=== PATIENT | female | born 1935 | race Caucasian/White ===

== ENCOUNTER 2018-02-16 12:32 | Emergency (ER) | payer OTHER ==
--- NOTE | 2018-02-16 14:26 | RAD REPORT ---
EXAM DESCRIPTION: RAD - Hip Right 2 View - 02/16/2018 2:15 pm CLINICAL HISTORY: PAIN Fall COMPARISON: No comparisons FINDINGS: Right total hip arthroplasty noted. No hardware complication is seen. No acute fracture or dislocation seen.
--- NOTE | 2018-02-16 14:28 | RAD REPORT ---
EXAM DESCRIPTION: RAD - Pelvis - 02/16/2018 2:16 pm CLINICAL HISTORY: fall 1 week ago;Pain COMPARISON: Hip Right 2 View dated 02/16/2018; Lumbar Spine 3 Views dated 02/16/2018 FINDINGS: Right total hip arthroplasty is noted. Moderate degenerative changes are present in the le ft hip. Subtle lucency in the right sacral ala could indicate the presence of sacral insufficiency fr acture.
--- NOTE | 2018-02-16 14:29 | RAD REPORT ---
EXAM DESCRIPTION: RAD - Lumbar Spine 3 Views - 02/16/2018 2:15 pm CLINICAL HISTORY: fall 1 week ago;Pain Radiculopathy COMPARISON: No comparisons FINDINGS: [id number] degenerative levoscoliosis of the lumbar spine is seen. Multilevel disc t hinning with posterior osteophyte is present with mild degenerative anterolisthesis of L4 on 5. Promi nent degenerative changes also present L5-S1. Aortic atherosclerosis is seen. Vague lucency in the ri ght sacral ala could indicate the presence of a sacral insufficiency fracture.
--- NOTE | 2018-02-16 15:10 | RAD REPORT ---
EXAM DESCRIPTION: CT - Pelvis Wo Cont - 02/16/2018 2:54 pm CLINICAL HISTORY: right hip pain History of fall. COMPARISON: Hip Right 2 View dated 02/16/2018; Pelvis dated 02/16/2018 TECHNIQUE: All CT scans are performed using dose optimization technique as appropriate and may inclu de automated exposure control or mA/KV adjustment according to patient size. FINDINGS: Assessment limited by streak artifact from right hip arthroplasty. Right total hip arthrop lasty is seen. Lucency is seen in the right sacral ala compatible with insufficiency fracture. The left sacral ala a ppears intact. Degenerative changes are present in the lower lumbar spine and both SI joints. Within the limitation of significant streak artifact, no additional fracture is discerned. Prominent diverticulosis coli is seen affecting the sigmoid colon without diverticulitis. Aortic athe rosclerosis. Small fat containing ventral hernia. IMPRESSION: Fracture of the right sacral ala is noted likely related to an insufficiency fracture. N o additional fracture is identified although assessment is somewhat degraded by streak artifact from right hip arthroplasty.
[2018-02-16] MEDS ORDERED: TRAMADOL HCL 50 MG TAB ONE (15:26)
--- NOTE | 2018-02-16 16:06 | ER ---
Nurse's Notes [facility] Name: Eileen Edge Age: 82 yrs Sex: Female : 1935 Arrival Date: 02/16/2018 Time: 12:35 Bed 7 Private MD: Rakan Murray E Diagnosis: Fracture of sacrum-Right Ala Presentation: 02/16 12:42 Presenting complaint: Child states: "She had hip replacement (right) a few years ago lk1 and she fell a week ago. She can't walk well and she wants it looked at.". Care prior to arrival: None. Mechanism of Injury: Fall. 12:42 Acuity: LADONNA 3 lk1 12:42 Method Of Arrival: Wheelchair lk1 12:43 Transition of care: patient was not received from another setting of care. Onset of lk1 symptoms was February 08, 2018. Risk Assessment: Do you want to hurt yourself or someone else? Patient reports no desire to harm self or others. Initial Sepsis Screen: Does the patient meet any 2 criteria? No. Patient's initial sepsis screen is negative. Does the patient have a suspected source of infection? No. Patient's initial sepsis screen is negative. Triage Assessment: 13:10 General: Appears in no apparent distress. comfortable, slender, well groomed, well sg developed, well nourished, Behavior is calm, cooperative, appropriate for age. Historical: - Allergies: 12:45 No Known Allergies; lk1 - PMHx: 12:45 Hypertension; Pacemaker; bradycardia; lk1 - PSHx: 12:45 ; right hip surgery; lk1 - Immunization history:: Adult Immunizations up to date. - Social history:: Smoking status: Patient/guardian denies using tobacco. - Ebola Screening: : No symptoms or risks identified at this time. Screenin:10 Abuse screen: Denies threats or abuse. Denies injuries from another. Nutritional sg screening: No deficits noted. Tuberculosis screening: No symptoms or risk factors identified. Never had TB. Fall Risk None identified. Fall in past 12 months (25 points). No secondary diagnosis (0 pts). No IV (0 pts). Ambulatory Aid- Crutches/Cane/Walker (15 pts). Gait- Weak (10 pts.). Mental Status- Oriented to own ability (0 pts). Total Larson Fall Scale indicates High Risk Score (45 or more points). Fall prevention measures have been instituted. Side Rails Up X 2 Placed Close to Nursing Station Frequent Obs/Assessments Occuring Family Present and informed to notify staff if the need to leave the bedside As available patient and family educated on Fall Prevention Program and Strategies. Assessment: 13:10 General: Appears in no apparent distress. comfortable, well groomed, well developed, sg well nourished, Behavior is calm, cooperative, appropriate for age. Pain: Complains of pain in lumbar area Pain does not radiate. Quality of pain is described as aching, sharp. Neuro: Level of Consciousness is awake, alert, obeys commands, Oriented to person, place, time, situation, Relief Cook are equal bilaterally Moves all extremities. Full function Speech is normal, Facial symmetry appears normal. Cardiovascular: Heart tones S1 S2 present Capillary refill is brisk in bilateral fingers Patient's skin is warm and dry. Chest pain is denied. Respiratory: Airway is patent Respiratory effort is even, unlabored, Respiratory pattern is regular, symmetrical, Breath sounds are clear. GI: No signs and/or symptoms were reported involving the gastrointestinal system. : No signs and/or symptoms were reported regarding the genitourinary system. EENT: No signs and/or symptoms were reported regarding the EENT system. Derm: Skin is pink, warm \\T\\ dry. Musculoskeletal: Circulation, motion, and sensation intact. Capillary refill is brisk, in bilateral fingers. Range of motion: intact in all extremities, Swelling absent Reports pain in lumbar area. 15:00 Reassessment: Patient appears in no apparent distress at this time. Patient and/or sg family updated on plan of care and expected duration. Pain level reassessed. Patient is alert, oriented x 3, equal unlabored respirations, skin warm/dry/pink. 15:40 Reassessment: Patient appears in no apparent distress at this time. Patient and/or sg family updated on plan of care and expected duration. Pain level reassessed. Patient is alert, oriented x 3, equal unlabored respirations, skin warm/dry/pink. pt ambulatory post ultram 50 mg PO, pt stated feeling better, pt is ambulatory even steady gait with the use of the ED walker, pt assist back to bed, no problems encountered, pt reports having a walker at home to use, Indigo RODRIGUEZ informed, awaiting new orders at this time. Patient states feeling better. Vital Signs: 12:45 BP 165 / 61; Pulse 63; Resp 14; Temp 98.8(TE); Pulse Ox 98% on R/A; Weight 57.61 kg lk1 (R); Height 5 ft. 3 in. (160.02 cm) (R); Pain 9/10; 14:38 BP 174 / 70; Pulse 60; Resp 16; Pulse Ox 98% on R/A; dh3 15:30 BP 152 / 66; Pulse 60; Resp 14; Pulse Ox 99% on R/A; Pain 0/10; sg 12:45 Body Mass Index 22.50 (57.61 kg, 160.02 cm) lk1 Galena Coma Score: 15:30 Eye Response: spontaneous(4). Verbal Response: oriented(5). Motor Response: obeys sg commands(6). Total: 15. Trauma Score (Adult): 15:30 Eye Response: spontaneous(1); Verbal Response: oriented(1); Motor Response: obeys sg commands(2); Systolic BP: > 89 mm Hg(4); Respiratory Rate: 10 to 29 per min(4); Galena Score: 15; Trauma Score: 12 ED Course: 12:35 Patient arrived in ED. sb2 12:35 Rakan Murray MD is Private Physician. sb2 12:43 Triage completed. lk1 12:47 Arm band placed on right wrist. lk1 12:58 Familia Meier, NATHALIE is Primary Nurse. sg 13:00 Gabino Murphy PA is PHCP. cp 13:00 Miguel Cuevas MD is Attending Physician. cp 13:07 Thermoregulation: warm blanket given to patient. ss 13:10 Patient has correct armband on for positive identification. Bed in low position. Call sg light in reach. Pulse ox on. NIBP on. Warm blanket given. Head of bed elevated. 14:12 X-ray completed. Patient tolerated procedure well. la2 14:12 XRAY Hip RIGHT 2 view In Process Unspecified. EDMS 14:12 XRAY Pelvis In Process Unspecified. EDMS 14:13 XRAY Lumbar Spine (3 Views) In Process Unspecified. EDMS 14:54 CT completed. Patient moved to CT via stretcher. Patient moved back from CT. sj 14:55 CT Pelvis wo Cont In Process Unspecified. EDMS 16:04 Rm Fuller MD is Referral Physician. cp 16:15 No provider procedures requiring assistance completed. Patient did not have IV access sg during this emergency room visit. Administered Medications: 15:27 Drug: UltRAM 50 mg Route: PO; sv Outcome: 16:06 Discharge ordered by MD. cp 16:15 Discharged to home via wheelchair, with family. sg 16:15 Condition: good 16:15 Discharge instructions given to patient, family, street and building decorator, Instructed on discharge instructions, follow up and referral plans. no drinking with medication, no driving heavy equipment, medication usage, benefits of quitting smoking, Demonstrated understanding of instructions, follow-up care, medications, Prescriptions given X 1. 16:18 Patient left the ED. ss Signatures: Dispatcher [employer] EDRenetta Rodgers RN RN Familia Meier RN RN sg Jones, Susan sj Smirch, Shelby, RN RN Gabino Murphy PA PA cp Veronica Harvey RN RN lk1 Vanessa Ellis 3 Fabiana Deutsch la2 Farheen Padron sb2 Corrections: (The following items were deleted from the chart) 12:44 12:42 Presenting complaint: Child states: "She had hip replacement (right) a few years lk1 ago and she fell. She can't walk well and she wants it looked at." lk1
--- NOTE | 2018-02-16 16:06 | EDPHYS ---
Physician Documentation [facility] Name: Eileen Edge Age: 82 yrs Sex: Female : 1935 Arrival Date: 02/16/2018 Time: 12:35 Bed 7 Private MD: Rakan Murray E ED Physician Miguel Cuevas HPI: 02/16 13:13 This 82 yrs old Female presents to ER via Wheelchair with complaints of Fall cp Injury - HIP. 13:13 Details of fall: The patient fell from an upright position. Onset: The symptoms/episode cp began/occurred 1 week(s) ago. Associated injuries: The patient sustained injury to the low back, pain, tenderness, right hip, painful injury. Historical: - Allergies: 12:45 No Known Allergies; lk1 - PMHx: 12:45 Hypertension; Pacemaker; bradycardia; lk1 - PSHx: 12:45 ; right hip surgery; lk1 - Immunization history:: Adult Immunizations up to date. - Social history:: Smoking status: Patient/guardian denies using tobacco. - Ebola Screening: : No symptoms or risks identified at this time. ROS: 13:16 Eyes: Negative for injury, pain, redness, and discharge. cp 13:16 Constitutional: Negative for body aches, chills, fever, poor PO intake. 13:16 ENT: Negative for drainage from ear(s), ear pain, sore throat, difficulty swallowing, difficulty handling secretions. 13:16 Cardiovascular: Negative for chest pain, edema, palpitations. 13:16 Respiratory: Negative for cough, shortness of breath, wheezing. 13:16 Abdomen/GI: Negative for abdominal pain, nausea, vomiting, and diarrhea, black/tarry stool, rectal bleeding. 13:16 Back: Positive for pain at rest, of the lumbar area. 13:16 MS/extremity: Positive for pain, of the right hip, Negative for decreased range of motion, deformity, paresthesias. 13:16 Skin: Negative for cellulitis, rash. 13:16 Neuro: Negative for dizziness, weakness. 13:16 All other systems are negative. Exam: 13:20 Constitutional: The patient appears in no acute distress, alert, awake, non-toxic, well cp developed, well nourished. 13:20 Head/Face: Normocephalic, atraumatic. cp 13:20 Eyes: Periorbital structures: appear normal, Conjunctiva: normal, no exudate, no injection, Sclera: no appreciated abnormality, Lids and lashes: appear normal, bilaterally. 13:20 ENT: External ear(s): are unremarkable, Nose: is normal, Mouth: Lips: moist, Oral mucosa: moist, Posterior pharynx: is normal, airway is patent, no erythema, no exudate, Voice: is normal. 13:20 Neck: ROM/movement: is normal, is supple, without pain, no range of motions limitations, no nuchal rigidity. 13:20 Chest/axilla: Inspection: normal, Palpation: is normal, no crepitus, no tenderness. 13:20 Cardiovascular: Rate: normal, Rhythm: regular, Edema: is not appreciated. 13:20 Respiratory: the patient does not display signs of respiratory distress, Respirations: normal, no use of accessory muscles, no retractions, no splinting, no tachypnea, labored breathing, is not present, Breath sounds: are clear throughout, no decreased breath sounds, no stridor, no wheezing. 13:20 Abdomen/GI: Inspection: abdomen appears normal, Bowel sounds: active, all quadrants, Palpation: abdomen is soft and non-tender, in all quadrants. 13:20 Back: pain, that is mild, of the lumbar area and right low back, ROM is painful, with all movement. 13:20 Musculoskeletal/extremity: Joints: All joints are normal except the right hip displays painful range of motion. 13:20 Skin: cellulitis, is not appreciated, no rash present. 13:20 Neuro: Orientation: to person, place \T\ time. Mentation: lucid, able to follow commands, Cerebellar function: is grossly normal, Motor: moves all fours, strength is normal, Sensation: is normal. Vital Signs: 12:45 BP 165 / 61; Pulse 63; Resp 14; Temp 98.8(TE); Pulse Ox 98% on R/A; Weight 57.61 kg lk1 (R); Height 5 ft. 3 in. (160.02 cm) (R); Pain 9/10; 14:38 BP 174 / 70; Pulse 60; Resp 16; Pulse Ox 98% on R/A; dh3 15:30 BP 152 / 66; Pulse 60; Resp 14; Pulse Ox 99% on R/A; Pain 0/10; sg 12:45 Body Mass Index 22.50 (57.61 kg, 160.02 cm) lk1 Colome Coma Score: 15:30 Eye Response: spontaneous(4). Verbal Response: oriented(5). Motor Response: obeys sg commands(6). Total: 15. Trauma Score (Adult): 15:30 Eye Response: spontaneous(1); Verbal Response: oriented(1); Motor Response: obeys sg commands(2); Systolic BP: > 89 mm Hg(4); Respiratory Rate: 10 to 29 per min(4); Rodney Score: 15; Trauma Score: 12 MDM: 13:00 Patient medically screened. cp 14:00 Differential diagnosis: fracture, contusion, sprain. cp 16:00 Data reviewed: vital signs, nurses notes, radiologic studies, CT scan, plain films. cp 16:00 Test interpretation: by ED physician or midlevel provider: plain radiologic studies. cp Counseling: I had a detailed discussion with the patient and/or guardian regarding: the historical points, exam findings, and any diagnostic results supporting the discharge/admit diagnosis, radiology results, the need for outpatient follow up, a orthopedic surgeon, to return to the emergency department if symptoms worsen or persist or if there are any questions or concerns that arise at home. Response to treatment: the patient's symptoms have markedly improved after treatment, VSS. Pain improved with meds. Patient observed ambulating in ED with use of walker. Will discharge to home for continued monitoring. 02/16 13:15 Order name: XRAY Hip RIGHT 2 view; Complete Time: 15:12 02/16 13:15 Order name: XRAY Pelvis; Complete Time: 15:12 02/16 13:15 Order name: XRAY Lumbar Spine (3 Views); Complete Time: 15:12 02/16 14:39 Order name: CT Pelvis wo Cont; Complete Time: 15:12 02/16 15:22 Order name: Misc. Order: ambulate with walker; Complete Time: 16:09 cp Administered Medications: 15:27 Drug: UltRAM 50 mg Route: PO; sv Disposition: 18:34 Co-signature as Attending Physician, Miguel Cuevas MD. gs Disposition: 02/16/18 16:06 Discharged to Home. Impression: Fracture of sacrum - Right Ala. - Condition is Stable. - Discharge Instructions: Fall Prevention and Home Safety. - Prescriptions for Ultram 50 mg Oral Tablet - take 1 tablet by ORAL route every 6 hours As needed; 20 tablet. - Medication Reconciliation Form, Thank You Letter, Antibiotic Education, Prescription Opioid Use form. - Follow up: Rm Fuller MD; When: 2 - 3 days; Reason: Recheck today's complaints. - Problem is new. - Symptoms have improved. Signatures: Dispatcher [employer] EDRenetta Rodgers, RN RN Chio Jc RN RN ss Gabino Murphy PA PA cp Kluge, Leah, RN RN lk1 Miguel Cuevas MD MD gs Corrections: (The following items were deleted from the chart) 16:18 16:06 02/16/2018 16:06 Discharged to Home. Impression: Fracture of sacrum - Right Ala. ss Condition is Stable. Forms are Medication Reconciliation Form, Thank You Letter, Antibiotic Education, Prescription Opioid Use. Follow up: Rm Fuller; When: 2 - 3 days; Reason: Recheck today's complaints. Problem is new. Symptoms have improved. cp
== END 2018-02-16 16:18 | disposition home or self-care (01) ==
LOC: ER 12:32
DX: S32.19XA Other fracture of sacrum, initial encounter for closed fracture (principal); W19.XXXA Unspecified fall, initial encounter; Y93.9 Activity, unspecified; Y92.9 Unspecified place or not applicable; I10 Essential (primary) hypertension; Z95.0 Presence of cardiac pacemaker
CPT/HCPCS: 72100; 72170; 72192; 99284

== ENCOUNTER 2019-02-23 11:09 | Emergency (ER) | payer OTHER ==
--- NOTE | 2019-02-23 12:40 | RAD REPORT ---
EXAM DESCRIPTION: RAD - Humerus Left - 02/23/2019 12:24 pm CLINICAL HISTORY: Left upper arm mass, pain COMPARISON: None. FINDINGS: A 12 millimeter rounded mass is seen in the superficial fatty tissues of the left arm. Thi s is the correlate to the physical exam finding. No associated calcification. No involvement of the d eeper muscle or bone. The soft tissue mass is nonspecific on plain film. No fracture is identified. There is no dislocation or periosteal reaction noted. Degenerative change present at the left shoulder joint. Pacemaker is partially imaged. IMPRESSION: Small 12 millimeter superficial mass of the left upper arm. This is the correlate to the physical exam finding but is nonspecific arm imaging. No involvement of the deeper muscle or bony structures.
--- NOTE | 2019-02-23 12:52 | ER ---
Nurse's Notes [facility] Name: Eileen Edge Age: 83 yrs Sex: Female : 1935 Arrival Date: 02/23/2019 Time: 11:12 Bed 11 Private MD: Diagnosis: Localized swelling, mass and lump, left upper limb Presentation: 02/23 11:17 Presenting complaint: Patient states: skin growth to left upper arm that began 2 week aa5 ago. Pt states "it didn't hurt but now it's tender". Transition of care: patient was not received from another setting of care. Onset of symptoms was January 2019. Risk Assessment: Do you want to hurt yourself or someone else? Patient reports no desire to harm self or others. Initial Sepsis Screen: Does the patient meet any 2 criteria? No. Patient's initial sepsis screen is negative. Does the patient have a suspected source of infection? No. Patient's initial sepsis screen is negative. Care prior to arrival: None. 11:17 Acuity: LADONNA 5 aa5 11:17 Method Of Arrival: Ambulatory aa5 Historical: - Allergies: 11:18 No Known Allergies; aa5 - PMHx: 11:18 BRADYCARDIA; Hypertension; Pacemaker; aa5 - PSHx: 11:18 ; right hip surgery; aa5 - Immunization history:: Flu vaccine status is unknown. - Social history:: Smoking status: Patient/guardian denies using tobacco. - Ebola Screening: : No symptoms or risks identified at this time. Screenin:30 Abuse screen: Denies threats or abuse. Nutritional screening: No deficits noted. aa5 Tuberculosis screening: No symptoms or risk factors identified. Fall Risk None identified. Assessment: 11:30 General: Appears comfortable, Behavior is calm, cooperative. Pain: Denies pain. Neuro: aa5 Level of Consciousness is awake, alert, obeys commands, Oriented to person, place, time, situation. Cardiovascular: Patient's skin is warm and dry. Respiratory: Airway is patent Respiratory effort is even, unlabored, Respiratory pattern is regular, symmetrical. GI: No signs and/or symptoms were reported involving the gastrointestinal system. : No signs and/or symptoms were reported regarding the genitourinary system. EENT: No signs and/or symptoms were reported regarding the EENT system. Derm: Skin is pink, warm \\T\\ dry. Skin growth that is dime-sized, red in color noted to left upper arm, no drainage noted, pt reports is tender to touch. Musculoskeletal: Range of motion: intact in all extremities. 13:07 Reassessment: Patient is alert, oriented x 3, equal unlabored respirations, skin aa5 warm/dry/pink. Vital Signs: 11:18 BP 191 / 75; Pulse 82; Resp 16 S; Temp 98.1(TE); Pulse Ox 100% on R/A; Weight 59.87 kg aa5 (R); Height 5 ft. 4 in. (162.56 cm); Pain 0/10; 11:18 Body Mass Index 22.66 (59.87 kg, 162.56 cm) aa5 11:18 Pt states "I haven't taken my blood pressure medication today" aa5 ED Course: 11:12 Patient arrived in ED. rg4 11:17 Arm band placed on. aa5 11:17 Patient has correct armband on for positive identification. aa5 11:18 Triage completed. aa5 11:27 Zaina Robb, RN is Primary Nurse. aa5 11:34 Gabino Murphy PA is PHCP. cp 11:34 Fran Nieto MD is Attending Physician. cp 12:20 X-ray completed. Portable x-ray completed in exam room. Patient tolerated procedure jb2 well. 12:25 XRAY Humerus LEFT In Process Unspecified. EDMS 13:07 No provider procedures requiring assistance completed. Patient did not have IV access aa5 during this emergency room visit. Administered Medications: No medications were administered Outcome: 12:52 Discharge ordered by MD. cp 13:07 Discharged to home ambulatory, with family. aa5 13:07 Condition: good 13:07 Discharge instructions given to patient, Instructed on discharge instructions, follow up and referral plans. Demonstrated understanding of instructions, follow-up care. 13:10 Patient left the ED. aa5 Signatures: Dispatcher [employer] EDMS Tk Richardson jb2 Zaina Robb, RN RN aa5 Gabino Murphy PA PA Pita Collado rg4
--- NOTE | 2019-02-23 12:52 | EDPHYS ---
Physician Documentation [facility] Name: Eileen Edge Age: 83 yrs Sex: Female : 1935 Arrival Date: 02/23/2019 Time: 11:12 Bed 11 Private MD: ED Physician Fran Nieto HPI: 02/23 12:05 This 83 yrs old Female presents to ER via Ambulatory with complaints of Arm cp Problem. 12:05 The patient or guardian complains of swelling, mass. cp 12:05 The complaints affect the lateral aspect left upper arm. Context: resulted from unknown cp cause. Onset: The symptoms/episode began/occurred 2 week(s) ago. Treatment prior to arrival includes: no previous treatment. Associated signs and symptoms: Pertinent negatives: fever. Historical: - Allergies: 11:18 No Known Allergies; aa5 - PMHx: 11:18 BRADYCARDIA; Hypertension; Pacemaker; aa5 - PSHx: 11:18 ; right hip surgery; aa5 - Immunization history:: Flu vaccine status is unknown. - Social history:: Smoking status: Patient/guardian denies using tobacco. - Ebola Screening: : No symptoms or risks identified at this time. ROS: 12:10 Constitutional: Negative for body aches, chills, fever, poor PO intake. cp 12:10 Cardiovascular: Negative for chest pain, palpitations. cp 12:10 Respiratory: Negative for cough, shortness of breath, wheezing. 12:10 Abdomen/GI: Negative for abdominal pain, nausea, vomiting, and diarrhea. 12:10 MS/extremity: Positive for swelling, tenderness, of the lateral aspect left upper arm, mass, Negative for injury or acute deformity, decreased range of motion. 12:10 All other systems are negative. Exam: 12:20 Constitutional: The patient appears in no acute distress, alert, awake, cp non-diaphoretic, non-toxic, well developed, well nourished. 12:20 Head/Face: Normocephalic, atraumatic. cp 12:20 Musculoskeletal/extremity: Extremities: grossly normal except: noted in the lateral aspect left upper arm: soft, tender, flesh colored mass. 12:20 Skin: cellulitis, is not appreciated, no rash present. Vital Signs: 11:18 BP 191 / 75; Pulse 82; Resp 16 S; Temp 98.1(TE); Pulse Ox 100% on R/A; Weight 59.87 kg aa5 (R); Height 5 ft. 4 in. (162.56 cm); Pain 0/10; 11:18 Body Mass Index 22.66 (59.87 kg, 162.56 cm) aa5 11:18 Pt states "I haven't taken my blood pressure medication today" aa5 MDM: 11:34 Patient medically screened. cp 12:51 Data reviewed: vital signs, nurses notes, radiologic studies, plain films, and as a cp result, I will discharge patient. 12:51 Differential diagnosis: bony tumor, abscess. Test interpretation: by ED physician or cp midlevel provider: plain radiologic studies. Counseling: I had a detailed discussion with the patient and/or guardian regarding: the historical points, exam findings, and any diagnostic results supporting the discharge/admit diagnosis, the need for outpatient follow up, a general surgeon, to return to the emergency department if symptoms worsen or persist or if there are any questions or concerns that arise at home. 02/23 12:00 Order name: XRAY Humerus LEFT; Complete Time: 12:50 cp Administered Medications: No medications were administered Disposition: 13:30 Chart complete. cp Disposition: 02/23/19 12:52 Discharged to Home. Impression: Localized swelling, mass and lump, left upper limb. - Condition is Stable. - Discharge Instructions: Skin Biopsy. - Medication Reconciliation Form, Thank You Letter, Antibiotic Education, Prescription Opioid Use form. - Follow up: Private Physician; When: 1 - 2 days; Reason: Recheck today's complaints. - Problem is new. - Symptoms are unchanged. Addendum: 03/02/2019 18:58 Co-signature as Attending Physician, Fran Nieto MD Available for consultation at p s1 all times . Signatures: Dispatcher [employer] EDTX Zaina Robb RN RN aa5 Gabino Murphy PA PA cp Fran Nieto MD MD ps1 Corrections: (The following items were deleted from the chart) 02/23 13:10 12:52 02/23/2019 12:52 Discharged to Home. Impression: Localized swelling, mass and aa5 lump, left upper limb. Condition is Stable. Forms are Medication Reconciliation Form, Thank You Letter, Antibiotic Education, Prescription Opioid Use. Follow up: Private Physician; When: 1 - 2 days; Reason: Recheck today's complaints. Problem is new. Symptoms are unchanged. cp
== END 2019-02-23 13:10 | disposition home or self-care (01) ==
LOC: ER 11:09
DX: R22.32 Localized swelling, mass and lump, left upper limb (principal); I10 Essential (primary) hypertension; Z95.0 Presence of cardiac pacemaker
CPT/HCPCS: 99283

== ENCOUNTER 2021-05-08 11:45 | Emergency (ER) | payer OTHER ==
[2021-05-08 13:18] LABS: Absolute Lymphocytes (CBC) 1.3 K/uL (0.7-4.9); Basophils % 1.2 % (0-1.3); Lymphocytes % 24.1 % (15.3-44.8); MPV 7.7 fL (7.6-11.3); RBC Red Blood Cell Count 3.95 M/uL (3.86-4.86)
[2021-05-08 13:30] LABS: Bilirubin Direct 0.2 mg/dL (0-0.2); Bilirubin Total 0.5 mg/dL (0.2-1.0); Potassium 4.1 mmol/L (3.5-5.1); Protein, Total 8.1 g/dL (6.4-8.2)
[2021-05-08] MEDS ORDERED: NA CHLORIDE 0.9% 500 ML ONE (13:32)
--- NOTE | 2021-05-08 16:20 | RAD REPORT ---
EXAM DESCRIPTION: CTAbdomen Pelvis W Contrast - 05/08/2021 4:07 pm CLINICAL HISTORY: . Rectal bleeding;Constipation COMPARISON: No comparisons TECHNIQUE: Biphasic CT imaging of the abdomen and pelvis was performed with 100 ml non-ionic IV cont rast. All CT scans are performed using dose optimization technique as appropriate and may include automated exposure control or mA/KV adjustment according to patient size. FINDINGS: Lower chest: Moderate hiatal hernia. Cardiomegaly. Defibrillator lead. Liver: No acute abnormality or suspicious lesions. Biliary: No biliary ductal dilatation. Stomach: No significant focal abnormality. Duodenum: No significant focal abnormality. Pancreas: No significant abnormality. Spleen: No significant abnormality. Adrenal: No suspicious lesions. Kidney/ureter: No hydronephrosis. No renal calculi. Too small to characterize and/or benign appearing renal lesions are noted. Retroperitoneum: Retroperitoneal lymphadenopathy noted. For example, there is a retroperitoneal lymph node measuring 16 millimeters in the left para-aortic location. There are areas of less discrete sof t tissue. Vascular: No aneurysm. Atherosclerosis. Bowel: No significant focal abnormality. Diverticulosis without diverticulitis. Peritoneum: No ascites or free air. Small fat containing ventral hernia. Bladder: Grossly unremarkable. Reproductive: No adnexal masses. Bones: No acute fracture. Other: n/a IMPRESSION: Retroperitoneal adenopathy/soft tissue that could reflect a lymphoproliferative disorder . Biopsy could be considered. No other acute findings identified.
--- NOTE | 2021-05-08 17:15 | EDPHYS ---
Physician Documentation [facility] Name: Eileen Edge Age: 86 yrs Sex: Female : 1935 Arrival Date: 05/08/2021 Time: 11:48 Bed 13 Private MD: Rakan Murray E ED Physician Sudhir Garcia HPI: 05/08 12:50 This 86 yrs old Female presents to ER via Ambulatory with complaints of pm1 Bloody Stools. 12:50 The patient presents to the emergency department with bleeding from the rectum/anus. pm1 Onset: The symptoms/episode began/occurred yesterday. Context: the patient Patient with self rectal digitalization in an attempt to remove feces. Patient reports removing pebble shaped stools with some bleeding as a result. Patient with known history of hemorrhoids. Modifying factors: The symptoms are alleviated by nothing, The symptoms are aggravated by bowel movement. Associate signs and symptoms: Pertinent positives: constipation, Pertinent negatives: abdominal pain, fever, vomiting Nausea, poor p.o. intake, chest pain, shortness of breath. The patient has experienced similar episodes in the past, multiple times. The patient has not recently seen a physician. Patient with complaints of constipation for approximately 1 week. Patient has been taking laxatives without any relief. Therefore last night patient sat on the commode and attempted to self digital fecal removal. Patient was only able to get out a few konrad but feels that she probably scratched one of her hemorrhoids and caused bleeding. Historical: - Allergies: 12:00 No Known Allergies; jl7 - Home Meds: 17:30 Xarelto 10 mg oral tab 1 tab once daily [Active]; spironolactone 25 mg Oral tab 1 tab es2 once daily [Active]; amlodipine 10 mg oral tab 1 tab once daily [Active]; metoprolol succinate 25 mg oral Tb24 1 tab once daily [Active]; - PMHx: 12:00 BRADYCARDIA; Hypertension; Pacemaker; Congestive heart failure; jl7 - PSHx: 12:00 pacemaker; hip; jl7 - Immunization history:: Adult Immunizations not up to date, Client reports having NOT received the Covid vaccine. - Social history:: Smoking status: Patient denies any tobacco usage or history of. ROS: 12:50 Constitutional: Negative for fever, chills, and weight loss. pm1 12:50 Cardiovascular: Negative for chest pain, palpitations, and edema, Respiratory: Negative for shortness of breath, cough, wheezing, and pleuritic chest pain, Back: Negative for injury and pain, : Negative for injury, bleeding, discharge, and swelling, MS/Extremity: Negative for injury and deformity, Skin: Negative for injury, rash, and discoloration, Neuro: Negative for headache, weakness, numbness, tingling, and seizure. 12:50 Abdomen/GI: Positive for constipation, rectal bleeding, Negative for abdominal pain, nausea, vomiting, and diarrhea, black/tarry stool, rectal pain. 12:50 All other systems are negative. Exam: 12:50 Constitutional: This is a well developed, well nourished patient who is awake, alert, pm1 and in no acute distress. Head/Face: Normocephalic, atraumatic. 12:50 Back: No spinal tenderness. No costovertebral tenderness. Full range of motion. Skin: Warm, dry with normal turgor. Normal color with no rashes, no lesions, and no evidence of cellulitis. MS/ Extremity: Pulses equal, no cyanosis. Neurovascular intact. Full, normal range of motion. 12:50 Eyes: Exam is negative for acute changes, Extraocular movements: no acute changes, Conjunctiva: no acute changes, no injection. 12:50 ENT: Exam is negative for acute changes, Mouth: Lips: normal, moist, Oral mucosa: normal, pink and intact, moist. 12:50 Cardiovascular: Exam negative for acute changes, Rate: normal, Rhythm: regular, Pulses: no pulse deficits are appreciated, Heart sounds: normal, normal S1and S2, Edema: is not appreciated. 12:50 Respiratory: Exam negative for acute changes, respiratory distress, shortness of breath, Breath sounds: are clear throughout. 12:50 Neuro: Exam negative for acute changes, Orientation: is normal, Mentation: is normal, Motor: is normal, moves all fours. 17:05 Abdomen/GI: Rectal exam: rectal tone normal, hemorrhoid(s), external, without pm1 inflammation, without thrombosis, without pain, Trace bleeding present from an external hemorrhoid, mass, is not appreciated, tenderness, is not appreciated, fecal impaction, is not appreciated, Jordyn ZELAYA. Vital Signs: 11:58 BP 161 / 66; Pulse 81; Resp 17; Temp 98; Pulse Ox 100% ; Weight 56.7 kg; Height 5 ft. 4 jl7 in. (162.56 cm); Pain 0/10; 12:50 BP 96 / 81; Pulse 60; Resp 13; Pulse Ox 99% on R/A; es2 13:30 BP 180 / 70; Pulse 61; Resp 19; Pulse Ox 100% on R/A; es2 14:30 BP 146 / 61; Pulse 60; Resp 16; Pulse Ox 94% on R/A; es2 14:45 BP 152 / 66; Pulse 61; Resp 16; Pulse Ox 99% on R/A; es2 15:00 BP 145 / 64; Pulse 60; Resp 16; Pulse Ox 96% on R/A; es2 15:30 BP 173 / 67; Pulse 60; Resp 16; Pulse Ox 98% on R/A; es2 17:05 BP 167 / 58; Pulse 62; Resp 17; Pulse Ox 99% ; es2 17:30 BP 160 / 63; Pulse 67; Resp 17; Pulse Ox 97% on R/A; es2 11:58 Body Mass Index 21.46 (56.70 kg, 162.56 cm) jl7 MDM: 12:44 Patient medically screened. pm1 17:10 Data reviewed: vital signs. Data interpreted: Pulse oximetry: on room air is 99 %. pm1 Interpretation: normal. Counseling: I had a detailed discussion with the patient and/or guardian regarding: the historical points, exam findings, and any diagnostic results supporting the discharge/admit diagnosis, lab results, radiology results, the need for outpatient follow up, to return to the emergency department if symptoms worsen or persist or if there are any questions or concerns that arise at home. 17:10 Special discussion: I discussed with the patient the need to follow-up with the pm1 PCP/specialist for the noted incidental finding on X-ray/CT scanning. 05/08 12:50 Order name: Basic Metabolic Panel; Complete Time: 13:55 pm1 05/08 12:50 Order name: CBC with Diff; Complete Time: 13:55 pm1 05/08 12:50 Order name: Hepatic Function; Complete Time: 13:55 pm1 05/08 12:50 Order name: IV Saline Lock; Complete Time: 13:05 pm1 05/08 12:50 Order name: CT Abd/Pelvis - PO and IV Contrast; Complete Time: 16:23 pm1 05/08 12:50 Order name: Labs collected and sent; Complete Time: 13:05 pm1 Administered Medications: 13:10 Drug: NS 0.9% 500 ml Route: IV; Rate: bolus; Site: right antecubital; es2 14:56 Follow up: Response: No adverse reaction; IV Status: Completed infusion; IV Intake: es2 500ml 15:18 Follow up: IV Status: Completed infusion es2 Disposition: 18:04 Co-signature as Attending Physician, Sudhir Garcia MD I agree with the assessment and rn plan of care. Attestation: The patient's history, exam findings, diagnostics, and a summary of any interventions or procedures was reviewed in detail with Luis Miguel Ervin NP. Disposition Summary: 05/08/21 17:14 Discharge Ordered Location: Home pm1 Problem: new pm1 Symptoms: have improved pm1 Condition: Stable pm1 Diagnosis - Unspecified hemorrhoids pm1 Followup: pm1 - With: Emergency Department - When: As needed - Reason: Worsening of condition Followup: pm1 - With: Private Physician - When: 2 - 3 days - Reason: Recheck today's complaints, Continuance of care, Re-evaluation by your physician Discharge Instructions: - Discharge Summary Sheet pm1 - High-Fiber Diet pm1 - Hemorrhoids pm1 Forms: - Medication Reconciliation Form pm1 - Thank You Letter pm1 - Antibiotic Education pm1 - Prescription Opioid Use pm1 Prescriptions: - Anusol-HC 25 mg Rectal Suppository - insert 1 suppository by RECTAL route every 12 hours As needed; 20 suppository; pm1 Refills: 0, Product Selection Permitted - Colace 100 mg Oral Tablet - take 1 tablet by ORAL route every 12 hours; 14 tablet; Refills: 0, Product pm1 Selection Permitted Signatures: Dispatcher [employer] EDMS Sudhir Garcia MD MD rn Marinas, Patrick, NP CREDIT RATING CHECKER pm1 Winter Rowland RN RN jl7 Dorothea Herman RN RN es2 Corrections: (The following items were deleted from the chart) 12:03 12:00 PSHx: None; ca sims7 17:33 12:00 Home Meds: Xarelto 20 mg Oral tab nightly; ca es2 17:33 12:00 Home Meds: Spironolactone Oral once daily; jl7 es2 1733 15:18 Home Meds: lasix; es2 es2
--- NOTE | 2021-05-08 17:15 | ER ---
Nurse's Notes [facility] Name: Eileen Edge Age: 86 yrs Sex: Female : 1935 Arrival Date: 05/08/2021 Time: 11:48 Bed 13 Private MD: Rakan Murray E Diagnosis: Unspecified hemorrhoids Presentation: 05/08 11:58 Chief complaint: Patient states: Constipated and hasn't been able to have a BM, pt jl7 reports 'digging' to get it out and maybe scratched something with fingernails because there was blood on the floor after. Coronavirus screen: Vaccine status: Patient reports being unvaccinated. Ebola Screen: No symptoms or risks identified at this time. Initial Sepsis Screen: Does the patient meet any 2 criteria? No. Patient's initial sepsis screen is negative. Does the patient have a suspected source of infection? No. Patient's initial sepsis screen is negative. Risk Assessment: Do you want to hurt yourself or someone else? Patient reports no desire to harm self or others. Onset of symptoms was May 08, 2021. 11:58 Method Of Arrival: Ambulatory [facility] 11:58 Acuity: LADONNA 3 jl7 Triage Assessment: 12:00 General: Appears in no apparent distress. uncomfortable, Behavior is calm, cooperative, jl7 appropriate for age. Pain: Denies pain. GI: Reports constipation. Historical: - Allergies: 12:00 No Known Allergies; jl7 - Home Meds: 17:30 Xarelto 10 mg oral tab 1 tab once daily [Active]; spironolactone 25 mg Oral tab 1 tab es2 once daily [Active]; amlodipine 10 mg oral tab 1 tab once daily [Active]; metoprolol succinate 25 mg oral Tb24 1 tab once daily [Active]; - PMHx: 12:00 BRADYCARDIA; Hypertension; Pacemaker; Congestive heart failure; jl7 - PSHx: 12:00 pacemaker; hip; jl7 - Immunization history:: Adult Immunizations not up to date, Client reports having NOT received the Covid vaccine. - Social history:: Smoking status: Patient denies any tobacco usage or history of. Screenin:54 Abuse screen: Denies threats or abuse. Denies injuries from another. Nutritional es2 screening: No deficits noted. Tuberculosis screening: No symptoms or risk factors identified. Fall Risk IV access (20 points). Gait- Normal/Bed Rest/Wheelchair (0 pts). Assessment: 12:47 Reassessment: Patient and/or family updated on plan of care and expected duration. Pain es2 level reassessed. Patient is alert, oriented x 3, equal unlabored respirations, skin warm/dry/pink. Patient denies pain at this time. General: Appears in no apparent distress. well groomed, Behavior is calm, cooperative, appropriate for age. Pain: Denies pain. Neuro: Level of Consciousness is awake, alert, obeys commands, Oriented to person, place, time, situation, Appropriate for age Gait is steady, Speech is normal, Facial symmetry appears normal. Cardiovascular: Capillary refill < 3 seconds Patient's skin is warm and dry. Respiratory: Airway is patent Respiratory effort is even, unlabored, Respiratory pattern is regular, symmetrical. GI: GI: Reports constipation, bloody stool. : No signs and/or symptoms were reported regarding the genitourinary system. EENT: No signs and/or symptoms were reported regarding the EENT system. Derm: Skin is intact, Skin is dry, Skin is pink, warm \T\ dry. Skin temperature is warm. Musculoskeletal: Capillary refill < 3 seconds, Range of motion: intact in all extremities. 16:13 General:. es2 16:15 Reassessment: Patient and/or family updated on plan of care and expected duration. Pain es2 level reassessed. Patient is alert, oriented x 3, equal unlabored respirations, skin warm/dry/pink. Patient denies pain at this time. General: Appears in no apparent distress. Behavior is calm, cooperative, appropriate for age. Pain: Denies pain. GI: Reports constipation, gaseousness. 16:59 Reassessment: Pt gone to CT. es2 17:08 Reassessment: Pt in room. EXTRACTOR PULLER at bedside. No complaints noted. General: Appears. es2 Vital Signs: 11:58 BP 161 / 66; Pulse 81; Resp 17; Temp 98; Pulse Ox 100% ; Weight 56.7 kg; Height 5 ft. 4 jl7 in. (162.56 cm); Pain 0/10; 12:50 BP 96 / 81; Pulse 60; Resp 13; Pulse Ox 99% on R/A; es2 13:30 BP 180 / 70; Pulse 61; Resp 19; Pulse Ox 100% on R/A; es2 14:30 BP 146 / 61; Pulse 60; Resp 16; Pulse Ox 94% on R/A; es2 14:45 BP 152 / 66; Pulse 61; Resp 16; Pulse Ox 99% on R/A; es2 15:00 BP 145 / 64; Pulse 60; Resp 16; Pulse Ox 96% on R/A; es2 15:30 BP 173 / 67; Pulse 60; Resp 16; Pulse Ox 98% on R/A; es2 17:05 BP 167 / 58; Pulse 62; Resp 17; Pulse Ox 99% ; es2 17:30 BP 160 / 63; Pulse 67; Resp 17; Pulse Ox 97% on R/A; es2 11:58 Body Mass Index 21.46 (56.70 kg, 162.56 cm) jl7 ED Course: 11:48 Patient arrived in ED. mr 11:48 Rakan Murray MD is Private Physician. mr 12:00 Triage completed. jl7 12:00 Arm band placed on right wrist. jl7 12:40 Luis Miguel Ervin NP is PHCP. pm1 12:40 Sudhir Garcia MD is Attending Physician. pm1 13:05 Basic Metabolic Panel Sent. es2 13:05 CBC with Diff Sent. es2 13:05 Hepatic Function Sent. es2 13:05 Inserted saline lock: 20 gauge in right antecubital area, using aseptic technique. es2 Blood collected. 14:56 Dorothea Herman, NATHALIE is Primary Nurse. es2 15:18 Patient has correct armband on for positive identification. Bed in low position. Call es2 light in reach. Side rails up X2. 15:18 No provider procedures requiring assistance completed. es2 16:07 CT Abd/Pelvis - PO and IV Contrast In Process Unspecified. EDMS 17:40 IV discontinued, intact, bleeding controlled, No redness/swelling at site. Pressure es2 dressing applied. Administered Medications: 13:10 Drug: NS 0.9% 500 ml Route: IV; Rate: bolus; Site: right antecubital; es2 14:56 Follow up: Response: No adverse reaction; IV Status: Completed infusion; IV Intake: es2 500ml 15:18 Follow up: IV Status: Completed infusion es2 Intake: 14:56 IV: 500ml; Total: 500ml. es2 Outcome: 17:14 Discharge ordered by MD. pm1 17:40 Discharged to home ambulatory. es2 17:40 Condition: stable 17:40 Discharge instructions given to patient, family, Instructed on discharge instructions, follow up and referral plans. medication usage, Demonstrated understanding of instructions, follow-up care, medications, Prescriptions given X 2. 17:52 Patient left the ED. es2 Signatures: Dispatcher [employer] Hayley Meléndez AzizaLuis Miguel, EXTRACTOR PULLER EXTRACTOR PULLER pm1 Winter Rowland RN RN jl7 Dorothea Herman RN RN es2 Corrections: (The following items were deleted from the chart) 12:03 12:00 PSHx: None; jl7 jl7 17:33 12:00 Home Meds: Xarelto 20 mg Oral tab nightly; jl7 es2 17:33 12:00 Home Meds: Spironolactone Oral once daily; jl7 es2 17:33 15:18 Home Meds: lasix; es2 es2
[2021-05-08 18:58] VITALS: TEMP 98
[2021-05-08 19:08] VITALS: BP 160/63; O2SAT 97
== END 2021-05-08 17:52 | disposition home or self-care (01) ==
LOC: ER 11:45
DX: K64.9 Unspecified hemorrhoids (principal); I10 Essential (primary) hypertension; I50.9 Heart failure, unspecified; Z79.01 Long term (current) use of anticoagulants; Z95.0 Presence of cardiac pacemaker
CPT/HCPCS: 96361; 85025; 80048; 36415; 80076; 74177; 96360; 99284; Q9967; J7040

== ENCOUNTER 2021-07-30 04:20 | Emergency (ER) | payer OTHER ==
[2021-07-30] MEDS ORDERED: ONDANSETRON 4 MG/2 ML VIAL ONE (05:06)
[2021-07-30] MEDS ORDERED: NA CHLORIDE 0.9% 500 ML ONE (05:07)
[2021-07-30 05:11] LABS: Absolute Lymphocytes (CBC) 1.5 K/uL (0.7-4.9); Hematocrit 35.9 % (36.0-45.0); Lymphocytes % 33.8 % (15.3-44.8); MPV 7.2 fL (7.6-11.3); RBC Red Blood Cell Count 4.01 M/uL (3.86-4.86)
[2021-07-30 05:14] LABS: Protime INR 1.32
[2021-07-30 05:44] LABS: ALT/SGPT 16 U/L (12-78); AST/SGOT 14 U/L (15-37); Albumin 3.4 g/dL (3.4-5.0); Alkaline Phosphatase 74 U/L (45-117); BUN Blood Urea Nitrogen 23 mg/dL (7-18); Bicarbonate 27 mmol/L (21-32); Bilirubin Direct 0.2 mg/dL (0-0.2); Bilirubin Total 0.5 mg/dL (0.2-1.0); Glucose Level 108 mg/dL (74-106); Lipase 85 U/L (73-393); Magnesium 1.5 mg/dL (1.8-2.4); NT PRO-BNP 736 pg/mL (<450); Potassium 3.9 mmol/L (3.5-5.1); Protein, Total 7.4 g/dL (6.4-8.2); Sodium Level 139 mmol/L (136-145); Troponin (Emerg Dept Use Only) < 0.02 ng/mL (0.0-0.045)
[2021-07-30 06:45] LABS: Urine Blood Trace-intact (Negative); Urine Glucose Negative (Negative); Urine Protein Negative (Negative); Urine Specific Gravity 1.015 (1.005-1.030)
[2021-07-30] MEDS ORDERED: Magnesium Sulfate 2gm IVPB 2 G/50 ML BAG IV ONE (06:50)
[2021-07-30] MEDS ORDERED: MECLIZINE HCL 12.5 MG TAB ONE ×2 (07:36)
--- NOTE | 2021-07-30 07:39 | RAD REPORT ---
EXAM DESCRIPTION: CT - Head Brain Wo Cont - 07/30/2021 7:22 am CLINICAL HISTORY: DIZZINESS COMPARISON: <Comparisons> TECHNIQUE: Axial 5 mm thick images of the head were obtained without IV contrast. All CT scans are performed using dose optimization technique as appropriate and may include automated exposure control or mA/KV adjustment according to patient size. FINDINGS: No intracranial hemorrhage, mass, edema or shift of mid-line structures. No acute infarcti on changes seen. No cortical edema or sulcal effacement. Mild for age atrophy changes are present wit h ventricles in proportion to the volume loss. Mild for age chronic ischemic changes are present. Den se arterial tree calcifications are present. Physiologic falx and tentorium calcifications present. Mastoid air cells and visualized portions of the paranasal sinuses are clear. No acute bony findings. Left occipital craniotomy defect noted. IMPRESSION: Negative non-contrast CT head examination for acute or significant finding.
[2021-07-30] MEDS ORDERED: FUROSEMIDE 20 MG/ 2ML VIAL ONE (07:56)
--- NOTE | 2021-07-30 08:21 | RAD REPORT ---
EXAM DESCRIPTION: RAD - Chest Single View - 07/30/2021 5:37 am CLINICAL HISTORY: COUGH COMPARISON: February 2016 TECHNIQUE: AP portable chest image was obtained 07/30/2021 5:37 am . FINDINGS: Lung volumes are low compared to the prior study, accentuating baseline interstitial patte rn. No peripheral mass or consolidation. No significant degree of failure or volume overload identifi able. Minimal or early interstitial edema or infiltrate are potentially masked in this setting. Left subclavian [address] Central vasculature and hilar regions are stable. Heart si ze is upper normal, stable in appearance. No measurable pleural effusion and no pneumothorax. No acut e bony abnormality seen. No acute aortic findings suspected. IMPRESSION: No acute cardiopulmonary process. No significant change from comparison study.
--- NOTE | 2021-07-30 08:27 | RAD REPORT ---
EXAM DESCRIPTION: - CP - 07/30/2021 8:10 am CLINICAL HISTORY: DIZZINESS COMPARISON: No comparisons TECHNIQUE: Real-time sonographic evaluation of bilateral carotid and vertebral systems was performed . [place] scale and Doppler interrogation were performed with waveform tracing bilaterally. FINDINGS: Normal high resistance waveforms are noted in both external carotid arteries. The common c arotid arteries and internal carotid arteries show normal low resistance waveforms. Calcified plaquing changes are present in the proximal right internal carotid artery which is tortuou s and difficult to evaluate. Left ICA tortuosity also noted. Prominent calcified plaquing changes are present in the left proximal ICA. The calcified anterior wall plaquing creates posterior acoustic sh adowing across the vessel lumen limiting ability to visually assess severity of stenosis. The peak ve locity values do not fall outside of the normal range. The ICA/ CCA ratios fall in a non hemodynamica lly significant range. Antegrade flow seen in both vertebral arteries. Velocity values and ratios were recorded and are retained in the patient's imaging records. IMPRESSION: Calcified plaquing changes are present in each tortuous proximal ICA. Peak systolic velocity values and ICA/CCA ratios do not indicate the presence of a hemodynamically si gnificant stenosis. No visual evidence for significant stenosis on the right. The densely calcified l eft ICA plaques limit visual assessment of the left ICA.
--- NOTE | 2021-07-30 09:07 | EDPHYS ---
Physician Documentation [facility] Name: Eileen Edge Age: 86 yrs Sex: Female : 1935 Arrival Date: 07/30/2021 Time: 04:22 Bed 17 Private MD: BOB Physician Gabino Cash HPI: 07/30 05:29 This 86 yrs old Female presents to ER via Ambulatory with complaints of tova Dizziness, High Blood Pressure. 05:29 The patient presents with dizziness, generalized weakness. Onset: The symptoms/episode tova began/occurred 2 day(s) ago. Context: occurred while the patient was asleep. Modifying factors: The symptoms are alleviated by nothing, the symptoms are aggravated by nothing. Associated signs and symptoms: The patient has no apparent associated signs or symptoms. Severity of symptoms: At their worst the symptoms were mild in the emergency department the symptoms are unchanged. Patient's baseline: Neuro: alert and fully oriented. The patient has not experienced similar symptoms in the past. Historical: - Home Meds: 05:22 amlodipine 10 mg tab 1 tab once daily [Active]; metoprolol succinate 25 mg Oral Tb24 1 sv1 tab once daily [Active]; spironolactone 25 mg Oral tab 1 tab once daily [Active]; Xarelto 10 mg Oral tab 1 tab once daily [Active]; - PMHx: 05:22 BRADYCARDIA; Congestive heart failure; Hypertension; Pacemaker; sv1 - PSHx: 05:22 pacemaker; hip; sv1 - Immunization history:: Adult Immunizations up to date, Client reports having NOT received the Covid vaccine. refused vaccine. - Social history:: Smoking status: Patient denies any tobacco usage or history of. - Family history:: not pertinent. ROS: 05:29 Constitutional: Negative for fever, chills, and weight loss, Eyes: Negative for injury, tova pain, redness, and discharge, ENT: Negative for injury, pain, and discharge, Neck: Negative for injury, pain, and swelling, Cardiovascular: Negative for chest pain, palpitations, and edema, Respiratory: Negative for shortness of breath, cough, wheezing, and pleuritic chest pain, Back: Negative for injury and pain, : Negative for injury, bleeding, discharge, and swelling, MS/Extremity: Negative for injury and deformity, Skin: Negative for injury, rash, and discoloration, Psych: Negative for depression, anxiety, suicide ideation, homicidal ideation, and hallucinations, Allergy/Immunology: Negative for hives, rash, and allergies, Endocrine: Negative for neck swelling, polydipsia, polyuria, polyphagia, and marked weight changes, Hematologic/Lymphatic: Negative for swollen nodes, abnormal bleeding, and unusual bruising. 05:29 Abdomen/GI: Positive for abdominal pain, nausea. Exam: 05:29 Constitutional: This is a well developed, well nourished patient who is awake, alert, tova and in no acute distress. Head/Face: Normocephalic, atraumatic. Eyes: Pupils equal round and reactive to light, extra-ocular motions intact. Lids and lashes normal. Conjunctiva and sclera are non-icteric and not injected. Cornea within normal limits. Periorbital areas with no swelling, redness, or edema. ENT: Nares patent. No nasal discharge, no septal abnormalities noted. Tympanic membranes are normal and external auditory canals are clear. Oropharynx with no redness, swelling, or masses, exudates, or evidence of obstruction, uvula midline. Mucous membranes moist. Neck: Trachea midline, no thyromegaly or masses palpated, and no cervical lymphadenopathy. Supple, full range of motion without nuchal rigidity, or vertebral point tenderness. No Meningismus. Chest/axilla: Normal chest wall appearance and motion. Nontender with no deformity. No lesions are appreciated. Cardiovascular: Regular rate and rhythm with a normal S1 and S2. No gallops, murmurs, or rubs. Normal PMI, no JVD. No pulse deficits. Respiratory: Lungs have equal breath sounds bilaterally, clear to auscultation and percussion. No rales, rhonchi or wheezes noted. No increased work of breathing, no retractions or nasal flaring. Abdomen/GI: Soft, non-tender, with normal bowel sounds. No distension or tympany. No guarding or rebound. No evidence of tenderness throughout. Back: No spinal tenderness. No costovertebral tenderness. Full range of motion. Skin: Warm, dry with normal turgor. Normal color with no rashes, no lesions, and no evidence of cellulitis. MS/ Extremity: Pulses equal, no cyanosis. Neurovascular intact. Full, normal range of motion. Neuro: Awake and alert, GCS 15, oriented to person, place, time, and situation. Cranial nerves II-XII grossly intact. Motor strength 5/5 in all extremities. Sensory grossly intact. Cerebellar exam normal. Normal gait. Psych: Awake, alert, with orientation to person, place and time. Behavior, mood, and affect are within normal limits. 05:29 Cardiovascular: Rate: normal, Rhythm: regular, Pulses: Pulses are 4+ in bilateral radial, brachial, femoral, popliteal, posterior tibial and and dorsalis pedis arteries.. Heart sounds: normal, normal S1and S2, no S3 or S4, no murmur, no rub, no gallop, Edema: is not appreciated, JVD: is not appreciated. 05:29 ECG was reviewed by the Attending Physician. 05:38 Neuro: Orientation: is normal, appropriate for stated age, no acute changes, Mentation: tova is normal, appropriate for stated age, no acute changes, Memory: is normal, appropriate for stated age, no acute changes, Cranial nerves: grossly normal, is grossly normal based on the patient's age, no acute changes, Cerebellar function: is grossly normal, is grossly normal based on the patient's age, no acute changes, Motor: is normal, is grossly normal based on the patient's age, no acute changes, moves all fours, strength is 5/5 in all extremities, Sensation: is normal, no obvious gross deficits, appropriate Gait: is steady, Deep tendon reflexes are 2+ (normal) in the bilateral brachioradialis, bicep, tricep and patellar and Achilles tendons, Babinski testing is normal, seizure activity, is not displayed by the patient. Vital Signs: 04:38 BP 199 / 74; Pulse 63; Resp 20; Temp 99.0; Pulse Ox 99% 0 lpm ; Weight 53.98 kg; Height sv1 5 ft. 4 in. (162.56 cm); Pain 0/10; 05:26 BP 172 / 62; Pulse 60; Resp 20; Pulse Ox 99% 0 lpm ; sv1 07:11 BP 168 / 60; Pulse 60; Resp 15; Pulse Ox 97% ; ll1 09:26 BP 181 / 65; Pulse 57; Resp 15; Pulse Ox 100% on R/A; Pain 0/10; ll1 04:38 Body Mass Index 20.43 (53.98 kg, 162.56 cm) sv1 NIH Stroke Scale Scores: 05:38 NIHSS Score: 0 tova MDM: 04:29 Patient medically screened. tova 05:39 Differential diagnosis: cardiac arrhythmia, CVA, generalized weakness, hypovolemia, tova idiopathic dizziness, sepsis. Data reviewed: vital signs, nurses notes, lab test result(s), EKG, radiologic studies, plain films. Data interpreted: athletic monitor: rate is 60 beats/min, rhythm is regular, Pulse oximetry: on room air is 99 %. Test interpretation: by ED physician or midlevel provider: ECG, plain radiologic studies. Counseling: I had a detailed discussion with the patient and/or guardian regarding: the historical points, exam findings, and any diagnostic results supporting the discharge/admit diagnosis, the presence of at least one elevated blood pressure reading (>120/80) during this emergency department visit, lab results, radiology results, the need for outpatient follow up, for definitive care, a chaser helper, a family practitioner. 07/30 04:49 Order name: Basic Metabolic Panel [facility] 07/30 04:49 Order name: CBC with Diff; Complete Time: 05:28 [facility] 07/30 04:49 Order name: LFT's; Complete Time: 06:17 [facility] 07/30 04:49 Order name: Magnesium; Complete Time: 06:17 [facility] 07/30 04:49 Order name: NT PRO-BNP; Complete Time: 06:17 [facility] 07/30 04:49 Order name: PT-INR; Complete Time: 05:28 [facility] 07/30 04:49 Order name: Troponin (emerg Dept Use Only); Complete Time: 06:17 [facility] 07/30 04:49 Order name: XRAY Chest (1 view); Complete Time: 08:25 [facility] 07/30 04:49 Order name: Lipase; Complete Time: 06:17 [facility] 07/30 04:50 Order name: Basic Metabolic Panel; Complete Time: 06:17 EDMS 07/30 06:45 Order name: Urine Dipstick-Ancillary; Complete Time: 06:52 EDAK 07/30 06:52 Order name: US Carotid Artery Bilateral; Complete Time: 08:28 [facility] 07/30 06:52 Order name: CT Head Brain wo Cont; Complete Time: 07:41 [facility] 07/30 04:49 Order name: EKG; Complete Time: 04:50 [facility] 07/30 04:49 Order name: Cardiac monitoring; Complete Time: 05:02 [facility] 07/30 04:49 Order name: EKG - Nurse/Tech; Complete Time: 05:02 [facility] 07/30 04:49 Order name: IV Saline Lock; Complete Time: 05:02 [facility] 07/30 04:49 Order name: Labs collected and sent; Complete Time: 05:02 [facility] 07/30 04:49 Order name: O2 Per Protocol; Complete Time: 05:03 [facility] 07/30 04:49 Order name: O2 Sat Monitoring; Complete Time: 05:03 [facility] 07/30 04:49 Order name: Urine Dipstick-Ancillary (obtain specimen); Complete Time: 06:45 [facility] EC:29 Rate is 64 beats/min. Rhythm is regular. QRS [place] is Normal. [place] interval is normal. QRS tova interval is normal. QT interval is normal. No Q waves. T waves are Normal. No ST changes noted. Clinical impression: No evidence of ischemia. Interpreted by me. Reviewed by me. Administered Medications: 07:43 Discontinued: NS 0.9% 500 ml IV at bolus once [facility] 05:16 Drug: Zofran (Ondansetron) 4 mg Route: IVP; Site: right antecubital; sv1 07:11 Follow up: Response: No adverse reaction ll1 05:17 Drug: NS 0.9% 500 ml Route: IV; Rate: bolus; Site: right antecubital; sv1 07:11 Follow up: Response: No adverse reaction; IV Status: Completed infusion; IV Intake: ll1 500ml 06:58 Drug: Magnesium Sulfate 2 grams Route: IVPB; Infused Over: 1 hrs; Site: right sv1 antecubital; 08:14 Follow up: Response: No adverse reaction; IV Status: Completed infusion; IV Intake: ll1 100ml 08:10 Drug: Meclizine 25 mg Route: PO; ll1 09:26 Follow up: Response: No adverse reaction ll1 08:11 Drug: Lasix (furosemide) 20 mg Route: IVP; Site: right antecubital; ll1 09:26 Follow up: Response: No adverse reaction ll1 Disposition Summary: 07/30/21 09:06 Discharge Ordered Location: Home pm1 Problem: new pm1 Symptoms: have improved pm1 Condition: Stable pm1 Diagnosis - Essential (primary) hypertension pm1 - Nausea pm1 - Hypomagnesemia pm1 - Dizziness and giddiness - BPV pm1 - Cardiomegaly pm1 - Systolic (congestive) heart failure pm1 Followup: tova - With: Private Physician - When: 2 - 3 days - Reason: Recheck today's complaints, Continuance of care, Re-evaluation by your physician Followup: tova - With: - When: 2 - 3 days - Reason: Recheck today's complaints, Continuance of care, Re-evaluation by your physician Discharge Instructions: - Discharge Summary Sheet tova - Benign Positional Vertigo tova - Hypertension, Adult tova - Hypomagnesemia tova - Dizziness tova - Heart Failure, Diagnosis tova - Nausea, Adult tova - Hypertension, Adult, [id number] tova - How to Take Your Blood Pressure, [id number] tova - Aspirin and Your Heart tova - Managing Your Hypertension tova - Vertigo tova - Dizziness, [id number]-[id number] tova - Heart Failure, Diagnosis, [id number] tova - Living With Heart Failure tova - Heart Failure Eating Plan tova Forms: - Medication Reconciliation Form pm1 - Thank You Letter pm1 - Antibiotic Education pm1 - Prescription Opioid Use pm1 Prescriptions: - Zofran 4 mg Oral Tablet - take 1 tablet by ORAL route every 12 hours As needed; 20 tablet; Refills: 0, tova Product Selection Permitted - Meclizine 25 mg Oral Tablet - take 1 tablet by ORAL route every 8 hours As needed; 30 tablet; Refills: 0, tova Product Selection Permitted NIH Stroke Scale - NIH Stroke Score Date: 07/30/2021 Time: 05:38 Total Score = 0 1a. Level of Consciousness (LOC) - 0(Alert) 1b. Level of Consciousness (LOC) (Month \T\ Age) - 0(Both) 1c. LOC Commands (Open \T\ Closes Eyes/[employer] Net Software Developer) - 0(Both) 2. Best Gaze (Lateral Gaze Paresis) - 0(Normal) 3. Visual Field Loss - 0(No visual loss) 4. Facial Palsy - 0(Normal) 5a. Left Arm: Motor (10-second hold) - 0(No drift) 5b. Right Arm: Motor (10-second hold) - 0(No drift) 6a. Left Leg: Motor (5-second hold - always test supine) - 0(No drift) 6b. Right Leg: Motor (5-second hold - always test supine) - 0(No drift) 7. Limb Ataxia (finger/nose \T\ heel/kingsley - test with eyes open) - 0(Absent) 8. Sensory Loss (pinprick arms/legs/face) - 0(Normal) 9. Best Language: Aphasia (description/naming/reading) - 0(No aphasia) 10. Dysarthria (speech clarity - read or repeat words) - 0(Normal) 11. Extinction and Inattention (visual/tactile/auditory/spatial/personal) - 0(No abnormality) Initials: tova Signatures: Dispatcher [employer] EDGabino Ernst MD MD cha Marinas, Patrick, JET ENGINE MECHANIC JET ENGINE MECHANIC [email or web address] Scottie Oconnell, RN RN ll1 Familia Mike RN RN sv1
--- NOTE | 2021-07-30 09:07 | ER ---
Nurse's Notes [facility] Name: Eileen Edge Age: 86 yrs Sex: Female : 1935 Arrival Date: 07/30/2021 Time: 04:22 Bed 17 Private MD: Diagnosis: Essential (primary) hypertension;Nausea;Hypomagnesemia;Dizziness and giddiness-BPV;Cardiomegaly;Systolic (congestive) heart failure Presentation: 07/30 04:44 Chief complaint: Patient states: high blood pressure x 2 mopnths and constipation. sv1 Coronavirus screen: At this time, the client does not indicate any symptoms associated with coronavirus-19. Ebola Screen: No symptoms or risks identified at this time. Initial Sepsis Screen: Does the patient meet any 2 criteria? No. Patient's initial sepsis screen is negative. Does the patient have a suspected source of infection? No. Patient's initial sepsis screen is negative. Risk Assessment: Do you want to hurt yourself or someone else? Patient reports no desire to harm self or others. Onset of symptoms was May 30, 2021. 04:44 Method Of Arrival: Ambulatory sv1 04:44 Acuity: LADONNA 3 sv1 Triage Assessment: 04:43 General: Appears distressed, uncomfortable. Pain: Denies pain. sv1 04:43 General: Behavior is cooperative. sv1 Historical: - Home Meds: 05:22 amlodipine 10 mg tab 1 tab once daily [Active]; metoprolol succinate 25 mg Oral Tb24 1 sv1 tab once daily [Active]; spironolactone 25 mg Oral tab 1 tab once daily [Active]; Xarelto 10 mg Oral tab 1 tab once daily [Active]; - PMHx: 05:22 BRADYCARDIA; Congestive heart failure; Hypertension; Pacemaker; sv1 - PSHx: 05:22 pacemaker; hip; sv1 - Immunization history:: Adult Immunizations up to date, Client reports having NOT received the Covid vaccine. refused vaccine. - Social history:: Smoking status: Patient denies any tobacco usage or history of. - Family history:: not pertinent. Screenin:18 Abuse screen: none. Nutritional screening: No deficits noted. Tuberculosis screening: sv1 No symptoms or risk factors identified. Fall Risk Secondary diagnosis (15 points) cancer. IV access (20 points). Assessment: 05:23 General: Alert and oriented . Brought in by wheel chair. CC constipation and sv1 hypertension x 2 months. Patient has a pacemaker. Paced cardiac rhythm. Number 20 IV started in her right antecubital. Labs drawn and IV meds were given. Initial bp 199/74. . 07:03 Reassessment: No changes from previously documented assessment. Patient and/or family mr2 updated on plan of care and expected duration. Pain level reassessed. Patient is alert, oriented x 3, equal unlabored respirations, skin warm/dry/pink. 07:07 General: Gave report. CT of the head ordered. sv1 07:13 Reassessment: No changes from previously documented assessment. Patient and/or family ll1 updated on plan of care and expected duration. Pain level reassessed. Patient is alert, oriented x 3, equal unlabored respirations, skin warm/dry/pink. 08:10 Reassessment: No changes from previously documented assessment. Patient and/or family ll1 updated on plan of care and expected duration. Pain level reassessed. Patient is alert, oriented x 3, equal unlabored respirations, skin warm/dry/pink. 09:10 Reassessment: No changes from previously documented assessment. Patient and/or family ll1 updated on plan of care and expected duration. Pain level reassessed. Patient is alert, oriented x 3, equal unlabored respirations, skin warm/dry/pink. Patient states feeling better. Vital Signs: 04:38 BP 199 / 74; Pulse 63; Resp 20; Temp 99.0; Pulse Ox 99% 0 lpm ; Weight 53.98 kg; Height sv1 5 ft. 4 in. (162.56 cm); Pain 0/10; 05:26 BP 172 / 62; Pulse 60; Resp 20; Pulse Ox 99% 0 lpm ; sv1 07:11 BP 168 / 60; Pulse 60; Resp 15; Pulse Ox 97% ; ll1 09:26 BP 181 / 65; Pulse 57; Resp 15; Pulse Ox 100% on R/A; Pain 0/10; ll1 04:38 Body Mass Index 20.43 (53.98 kg, 162.56 cm) sv1 NIH Stroke Scale Scores: 05:38 NIHSS Score: 0 tova ED Course: 04:22 Patient arrived in ED. bp1 04:29 Gabino Cash MD is Attending Physician. tova 04:38 Familia Mike, RN is Primary Nurse. sv1 04:43 Arm band placed on left wrist. sv1 04:44 EKG completed in triage. Results shown to MD. sv1 04:47 Triage completed. sv1 05:02 Basic Metabolic Panel Sent. sv1 05:02 Basic Metabolic Panel Sent. sv1 05:02 CBC with Diff Sent. sv1 05:02 LFT's Sent. sv1 05:02 Magnesium Sent. sv1 05:03 NT PRO-BNP Sent. sv1 05:03 PT-INR Sent. sv1 05:03 Troponin (emerg Dept Use Only) Sent. sv1 05:04 Lipase Sent. sv1 05:21 Patient has correct armband on for positive identification. sv1 05:21 No provider procedures requiring assistance completed. sv1 05:28 XRAY Chest (1 view) Sent. sv1 05:37 XRAY Chest (1 view) In Process Unspecified. EDMS 07:22 CT Head Brain wo Cont In Process Unspecified. EDMS 07:58 Luis Miguel Ervin NP is PHCP. pm1 08:11 US Carotid Artery Bilateral In Process Unspecified. EDMS 09:03 Primary Nurse role handed off by Familia Mike, NATHALIE eb 09:06 Ernesto Almaraz MD is Referral Physician. pm1 09:25 Scottie Oconnell, NATHALIE is Primary Nurse. ll1 09:27 IV discontinued, intact, bleeding controlled, No redness/swelling at site. Pressure ll1 dressing applied. Administered Medications: 07:43 Discontinued: NS 0.9% 500 ml IV at bolus once tova 05:16 Drug: Zofran (Ondansetron) 4 mg Route: IVP; Site: right antecubital; sv1 07:11 Follow up: Response: No adverse reaction ll1 05:17 Drug: NS 0.9% 500 ml Route: IV; Rate: bolus; Site: right antecubital; sv1 07:11 Follow up: Response: No adverse reaction; IV Status: Completed infusion; IV Intake: ll1 500ml 06:58 Drug: Magnesium Sulfate 2 grams Route: IVPB; Infused Over: 1 hrs; Site: right sv1 antecubital; 08:14 Follow up: Response: No adverse reaction; IV Status: Completed infusion; IV Intake: ll1 100ml 08:10 Drug: Meclizine 25 mg Route: PO; 1 09:26 Follow up: Response: No adverse reaction ll1 08:11 Drug: Lasix (furosemide) 20 mg Route: IVP; Site: right antecubital; 1 09:26 Follow up: Response: No adverse reaction 1 Intake: 07:11 IV: 500ml; Total: 500ml. ll1 08:14 IV: 100ml; Total: 600ml. 1 Outcome: 09:06 Discharge ordered by MD. pm1 09:26 Discharged to home via wheelchair. ll1 09:26 Condition: stable 09:26 Discharge instructions given to patient, family, Instructed on discharge instructions, follow up and referral plans. no drinking with medication, no driving heavy equipment, medication usage, Demonstrated understanding of instructions, follow-up care, medications, Prescriptions given X 2. 09:27 Patient left the ED. 1 NIH Stroke Scale - NIH Stroke Score Date: 07/30/2021 Time: 05:38 Total Score = 0 1a. Level of Consciousness (LOC) - 0(Alert) 1b. Level of Consciousness (LOC) (Month \T\ Age) - 0(Both) 1c. LOC Commands (Open \T\ Closes Eyes/Nurse) - 0(Both) 2. Best Gaze (Lateral Gaze Paresis) - 0(Normal) 3. Visual Field Loss - 0(No visual loss) 4. Facial Palsy - 0(Normal) 5a. Left Arm: Motor (10-second hold) - 0(No drift) 5b. Right Arm: Motor (10-second hold) - 0(No drift) 6a. Left Leg: Motor (5-second hold - always test supine) - 0(No drift) 6b. Right Leg: Motor (5-second hold - always test supine) - 0(No drift) 7. Limb Ataxia (finger/nose \T\ heel/kingsley - test with eyes open) - 0(Absent) 8. Sensory Loss (pinprick arms/legs/face) - 0(Normal) 9. Best Language: Aphasia (description/naming/reading) - 0(No aphasia) 10. Dysarthria (speech clarity - read or repeat words) - 0(Normal) 11. Extinction and Inattention (visual/tactile/auditory/spatial/personal) - 0(No abnormality) Initials: tova Signatures: Dispatcher [employer] Gabino Parks MD MD cha Marinas, Patrick, CAM MAKER CAM MAKER pm1 Dorothea Celaya Lynsay, RN RN ll1 Misty Brennan Mike, RN RN mr2 Familia Mike RN RN sv1
[2021-07-30 09:39] VITALS: TEMP 99
[2021-07-30 09:44] VITALS: BP 181/65; O2SAT 100
== END 2021-07-30 09:27 | disposition home or self-care (01) ==
LOC: ER 04:20
DX: I10 Essential (primary) hypertension (principal); E83.42 Hypomagnesemia; I51.7 Cardiomegaly; I50.20 Unspecified systolic (congestive) heart failure; R11.0 Nausea; Z79.01 Long term (current) use of anticoagulants; Z95.0 Presence of cardiac pacemaker
CPT/HCPCS: 96365; 96361; 93005; 85025; 80048; 36415; 83735; 85610; 80076; 81003; 84484; 83690; 83880; 70450; 71045; 93880; 96375; 99284; J1940; J3475; J7040; J2405; J8597

== ENCOUNTER 2021-09-08 12:14 | Inpatient (IN) | payer OTHER ==
[2021-09-08 13:21] LABS: Hematocrit 33.9 % (36.0-45.0); Lymphocytes % 16.2 % (15.3-44.8); MPV 7.5 fL (7.6-11.3); RBC Red Blood Cell Count 3.73 M/uL (3.86-4.86)
[2021-09-08 13:22] LABS: Protime INR 1.9
[2021-09-08 13:40] LABS: Albumin 3.5 g/dL (3.4-5.0); Bilirubin Direct 0.2 mg/dL (0-0.2); Bilirubin Total 0.5 mg/dL (0.2-1.0); Magnesium 2.1 mg/dL (1.8-2.4); Potassium 4.1 mmol/L (3.5-5.1); Protein, Total 7.7 g/dL (6.4-8.2); Troponin High Sensitivity 26.4 pg/mL (<58.9)
--- NOTE | 2021-09-08 14:19 | RAD REPORT ---
EXAM DESCRIPTION: RAD - Chest Single View - 09/08/2021 1:44 pm CLINICAL HISTORY: Cough;Dyspnea COMPARISON: Chest Single View dated 07/30/2021; Chest Pa And Lat (2 Views) dated 02/25/2016 FINDINGS: Lines: Pacemaker. Lungs: No evidence of edema or pneumonia. Pleural: Blunting of both costophrenic angles Cardiac: Cardiomegaly. Bones: No acute fractures. Other: IMPRESSION: Blunting of the costophrenic angles may represent small effusions, possibly as a result of edema/heart failure.
[2021-09-08 14:20] LABS: SARS-COV-2 RT PCR NEGATIVE (NEGATIVE)
--- NOTE | 2021-09-08 15:21 | EDPHYS ---
Physician Documentation [facility] Name: Eileen Edge Age: 86 yrs Sex: Female : 1935 Arrival Date: 09/08/2021 Time: 12:16 Bed 14 Private MD: Rakan Murray E ED Physician Gabino Cash HPI: 09/08 14:55 This 86 yrs old Female presents to ER via Ambulatory with complaints of tova Shortness Of Breath, Abdominal Swelling, Feet Swelling. 14:55 The patient has shortness of breath at rest, with light activity. Onset: The tova symptoms/episode began/occurred 3 day(s) ago. Duration: The symptoms are continuous, and are steadily getting worse. The patient's shortness of breath is aggravated by light activity, supine position. Associated signs and symptoms: Pertinent positives: non-productive cough, nausea. 14:59 The patient presents with abdominal pain in the periumbilical area. Onset: The tova symptoms/episode began/occurred 3 day(s) ago. Severity of symptoms: At their worst the symptoms were moderate in the emergency department the symptoms are unchanged. Associated signs and symptoms: Pertinent positives: nausea. Historical: - Allergies: 12:17 No Known Allergies; ll1 - PMHx: 12:17 BRADYCARDIA; Congestive heart failure; Hypertension; Pacemaker; ll1 - PSHx: 12:17 hip; pacemaker; ll1 - Immunization history:: Adult Immunizations up to date, Client reports having NOT received the Covid vaccine. - Social history:: Smoking status: . - Family history:: not pertinent. ROS: 14:59 Constitutional: Negative for fever, chills, and weight loss, Eyes: Negative for injury, tova pain, redness, and discharge, ENT: Negative for injury, pain, and discharge, Neck: Negative for injury, pain, and swelling, Cardiovascular: Negative for chest pain, palpitations, and edema, Back: Negative for injury and pain, : Negative for injury, bleeding, discharge, and swelling, MS/Extremity: Negative for injury and deformity, Skin: Negative for injury, rash, and discoloration, Neuro: Negative for headache, weakness, numbness, tingling, and seizure, Psych: Negative for depression, anxiety, suicide ideation, homicidal ideation, and hallucinations, Allergy/Immunology: Negative for hives, rash, and allergies, Endocrine: Negative for neck swelling, polydipsia, polyuria, polyphagia, and marked weight changes, Hematologic/Lymphatic: Negative for swollen nodes, abnormal bleeding, and unusual bruising. 14:59 Respiratory: Positive for cough, shortness of breath, at rest. 14:59 Abdomen/GI: Positive for abdominal pain, of the umbilical area. Exam: 14:59 Constitutional: This is a well developed, well nourished patient who is awake, alert, tova and in no acute distress. Head/Face: Normocephalic, atraumatic. Eyes: Pupils equal round and reactive to light, extra-ocular motions intact. Lids and lashes normal. Conjunctiva and sclera are non-icteric and not injected. Cornea within normal limits. Periorbital areas with no swelling, redness, or edema. ENT: Nares patent. No nasal discharge, no septal abnormalities noted. Tympanic membranes are normal and external auditory canals are clear. Oropharynx with no redness, swelling, or masses, exudates, or evidence of obstruction, uvula midline. Mucous membranes moist. Neck: Trachea midline, no thyromegaly or masses palpated, and no cervical lymphadenopathy. Supple, full range of motion without nuchal rigidity, or vertebral point tenderness. No Meningismus. Chest/axilla: Normal chest wall appearance and motion. Nontender with no deformity. No lesions are appreciated. Cardiovascular: Regular rate and rhythm with a normal S1 and S2. No gallops, murmurs, or rubs. Normal PMI, no JVD. No pulse deficits. Respiratory: Lungs have equal breath sounds bilaterally, clear to auscultation and percussion. No rales, rhonchi or wheezes noted. No increased work of breathing, no retractions or nasal flaring. Back: No spinal tenderness. No costovertebral tenderness. Full range of motion. Female : Normal external genitalia. Skin: Warm, dry with normal turgor. Normal color with no rashes, no lesions, and no evidence of cellulitis. MS/ Extremity: Pulses equal, no cyanosis. Neurovascular intact. Full, normal range of motion. Neuro: Awake and alert, GCS 15, oriented to person, place, time, and situation. Cranial nerves II-XII grossly intact. Motor strength 5/5 in all extremities. Sensory grossly intact. Cerebellar exam normal. Normal gait. Psych: Awake, alert, with orientation to person, place and time. Behavior, mood, and affect are within normal limits. 14:59 ECG was reviewed by the Attending Physician. 14:59 Abdomen/GI: Inspection: distension, that is mild, Bowel sounds: normal, Palpation: moderate abdominal tenderness, in the umbilical area, Liver: no appreciated palpable abnormalities, Hernia: not appreciated. 15:08 Cardiovascular: Rate: normal, Rhythm: regular, Pulses: Pulses are 4+ in bilateral tova radial, brachial, femoral, popliteal, posterior tibial and and dorsalis pedis arteries.. Heart sounds: normal, Edema: 2+ edema to level of left midcalf and right midcalf, JVD: is noted bilaterally, to 3 cm. 15:08 Respiratory: the patient does not display signs of respiratory distress, Respirations: no acute changes, Breath sounds: Respiratory rate: 22 Vital Signs: 12:22 Temp 97.6; Weight 52.16 kg; Height 5 ft. 4 in. (162.56 cm); Pain 10/10; ll1 12:30 BP 155 / 58; Pulse 74; Resp 16; Temp 98.4; Pulse Ox 98% ; Pain 2/10; cb5 16:35 BP 160 / 51; Pulse 70; Resp 16; Temp 98.7; Pulse Ox 98% ; Pain 0/10; cb5 19:45 BP 148 / 51 LA Supine (auto/reg); Pulse 59 MON; Resp 18 S; Temp 98.1; Pulse Ox 94% ; tk1 Pain 0/10; 20:50 BP 152 / 54 LA Supine (auto/reg); Pulse 64 MON; Resp 20; Pulse Ox 91% ; Pain 0/10; tk1 12:22 Body Mass Index 19.74 (52.16 kg, 162.56 cm) ll1 MDM: 12:45 Patient medically screened. tova 15:02 Differential diagnosis: CHF exacerbation, pulmonary edema, bowel obstruction, tova diverticulitis, Mesenteric ischemia or infarction, non-specific abd pain, pancreatitis, Peritonitis, urinary tract infection. Antibiotic administration: ZOSYN. The patient's Wells Deep Vein Thrombosis Score was calculated as follows: Total Score: 0-2 Pts- Low Risk. The patient's pulmonary embolism risk score was calculated as follows: Total Score: 0-2 points. This patient was found to be at low risk for a pulmonary embolism by using the Well's assessment criteria. Immunization status: Pneumococcal vaccine: Influenza vaccine: Data reviewed: vital signs, nurses notes, lab test result(s), EKG, radiologic studies, CT scan, plain films. Data interpreted: alarm security or surveillance monitor: rate is 60 beats/min, rhythm is regular, Pulse oximetry: on room air is 96 %. Test interpretation: by ED physician or midlevel provider: ECG, plain radiologic studies. Counseling: I had a detailed discussion with the patient and/or guardian regarding: the historical points, exam findings, and any diagnostic results supporting the discharge/admit diagnosis, lab results, radiology results. 09/08 12:46 Order name: Basic Metabolic Panel; Complete Time: 14:23 [facility] 09/08 12:46 Order name: CBC with Diff; Complete Time: 14:23 [facility] 09/08 12:46 Order name: LFT's; Complete Time: 14:23 [facility] 09/08 12:46 Order name: Magnesium; Complete Time: 14:23 [facility] 09/08 12:46 Order name: NT PRO-BNP; Complete Time: 14:23 [facility] 09/08 12:46 Order name: PT-INR; Complete Time: 14:23 [facility] 09/08 12:46 Order name: Troponin HS; Complete Time: 14:23 [facility] 09/08 12:46 Order name: XRAY Chest (1 view); Complete Time: 14:23 [facility] 09/08 12:46 Order name: Lipase; Complete Time: 14:23 [facility] 09/08 12:46 Order name: COVID-19/FLU A+B/RSV (Document "Date of Onset" if Symptomatic); Complete [facility] Time: 14:09/08 14:54 Order name: Abdomen ; Complete Time: 17:56 [facility] 09/08 12:46 Order name: EKG; Complete Time: 12:47 [facility] 09/08 12:46 Order name: Cardiac monitoring; Complete Time: 12:54 [facility] 09/08 12:46 Order name: EKG - Nurse/Tech; Complete Time: 13:13 [facility] 09/08 12:46 Order name: IV Saline Lock; Complete Time: 13:13 [facility] 09/08 12:46 Order name: Labs collected and sent; Complete Time: 13:13 [facility] 09/08 12:46 Order name: O2 Per Protocol; Complete Time: 12:54 [facility] 09/08 12:46 Order name: O2 Sat Monitoring; Complete Time: 12:54 tova 09/08 12:46 Order name: Urine Dipstick-Ancillary (obtain specimen) [facility] EC:59 Rate is 60 beats/min. Rhythm is regular. QRS [place]ack[place] is Normal. TN interval is normal. QRS tova interval is normal. QT interval is normal. No Q waves. T waves are Normal. No ST changes noted. Clinical impression: Abnormal EKG without significant change and No evidence of ischemia. Interpreted by me. Reviewed by me. Administered Medications: 15:31 Drug: Lasix (furosemide) 20 mg Route: IVP; Site: right antecubital; cb5 15:31 Drug: Zosyn (piperacillin-tazobactam) 3.375 grams Route: IVPB; Infused Over: 60 mins; cb5 Site: right antecubital; Disposition Summary: 09/08/21 15:20 Hospitalization Ordered Hospitalization Status: Observation tova Provider: Goran Fiore cha Location: Telemetry/MedSurg (observation) tova Condition: Stable tova Problem: new tova Symptoms: have improved tova Bed/Room Type: Standard tova Room Assignment: 230(09/08/21 18:32) eb Diagnosis - Abdominal tenderness tova - Periumbilical pain tova - Umbilical hernia without obstruction or gangrene tova - Dyspnea tova - Systolic (congestive) heart failure tova Forms: - Medication Reconciliation Form tova - SBAR form tova Signatures: Dispatcher [employer] EDMS Gabino Cash MD MD cha Botello, Elizabeth eb Lewis, Lynsay, RN RN ll1 Juli Joel RN RN cb5 Corrections: (The following items were deleted from the chart) 14:54 14:49 Abdomen Pelvis W Con+CT.RAD.BRZ ordered. EDMS EDMS 18:32 15:20 tova eb
--- NOTE | 2021-09-08 15:21 | ER ---
Nurse's Notes [facility] Name: Eileen Edge Age: 86 yrs Sex: Female : 1935 Arrival Date: 09/08/2021 Time: 12:16 Bed 14 Private MD: Rakan Murray E Diagnosis: Abdominal tenderness;Periumbilical pain;Umbilical hernia without obstruction or gangrene;Dyspnea;Systolic (congestive) heart failure Presentation: 09/08 12:22 Chief complaint: Patient states: Bilateral feet swelling for 1 week. Abd distension ll1 with nausea and SOB for 4 days. + weak, fatigue. No known fever. Coronavirus screen: Vaccine status: Patient reports being unvaccinated. Client denies travel out of the [place] in the last 14 days. difficulty breathing, fatigue, headache, muscle pain, shortness of breath, Client presents with at least one sign or symptom that may indicate coronavirus-19. Standard/surgical mask placed on the client. Ebola Screen: Patient denies travel to an Ebola-affected area in the 21 days before illness onset. Initial Sepsis Screen: Does the patient meet any 2 criteria? No. Patient's initial sepsis screen is negative. Does the patient have a suspected source of infection? Yes: Acute abdominal pain. Risk Assessment: Do you want to hurt yourself or someone else? Patient reports no desire to harm self or others. Onset of symptoms was September 01, 2021. 12:22 Method Of Arrival: Ambulatory ll1 12:22 Acuity: LADONNA 3 ll1 Triage Assessment: 12:24 General: Appears uncomfortable, well groomed, well developed, well nourished, Behavior cb5 is calm, cooperative, appropriate for age. Pain: Complains of pain in abdomen Pain currently is 4 out of 10 on a pain scale. Respiratory: Reports cough that is Onset: The symptoms/episode began/occurred gradually, the patient has mild shortness of breath. GI: history of constipation. Historical: - Allergies: 12:17 No Known Allergies; ll1 - PMHx: 12:17 BRADYCARDIA; Congestive heart failure; Hypertension; Pacemaker; ll1 - PSHx: 12:17 hip; pacemaker; ll1 - Immunization history:: Adult Immunizations up to date, Client reports having NOT received the Covid vaccine. - Social history:: Smoking status: . - Family history:: not pertinent. Screenin:28 Abuse screen: Denies threats or abuse. Denies injuries from another. Nutritional cb5 screening: No deficits noted. Tuberculosis screening: No symptoms or risk factors identified. Fall Risk None identified. Assessment: 12:26 General: Appears uncomfortable, well groomed, well developed, well nourished, Behavior cb5 is calm, cooperative, appropriate for age. Pain: Complains of pain in abdomen Pain currently is 4 out of 10 on a pain scale. Neuro: Level of Consciousness is awake, alert, obeys commands. Cardiovascular: No deficits noted. Rhythm is sinus rhythm. Respiratory: Airway is patent Respiratory effort is even, Breath sounds are clear bilaterally. GI: Abdomen is round non-distended, Bowel sounds present X 4 quads. pt reports history of constipation, last BM yesterday. : Denies. EENT: No deficits noted. Derm: patient with poor skin turgor. Musculoskeletal: No deficits noted. 15:55 Reassessment: Patient and/or family updated on plan of care and expected duration. Pain cb5 level reassessed. 15:55 Reassessment: No changes from previously documented assessment. cb5 16:32 Reassessment: Patient states feeling better. cb5 18:32 Reassessment: Patient denies pain at this time. Patient states feeling better. ss 19:30 Reassessment: Report received. General: Appears in no apparent distress. well groomed, tk1 well developed, well nourished, Behavior is calm, cooperative, appropriate for age. Pain: Denies pain. Neuro: No deficits noted. Level of Consciousness is awake, alert, obeys commands, Oriented to person, place, time, situation, District Engineer are equal bilaterally Moves all extremities. Full function Gait is steady, Speech is normal. Cardiovascular: No deficits noted. Rhythm is Respiratory: Airway is patent Respiratory effort is even, unlabored. GI: Abdomen is round non-distended, Bowel sounds present X 4 quads. GI: Reports diarrhea. : No deficits noted. EENT: No deficits noted. Derm: 21:09 Reassessment: Patient OOB with daughter. Ambulated to restroom. Steady gait. Attempted tk1 to collect urine specimen. Patient with diarrhea. Urine specimen to collection is contaminated with stool. Vital Signs: 12:22 Temp 97.6; Weight 52.16 kg; Height 5 ft. 4 in. (162.56 cm); Pain 10/10; ll1 12:30 BP 155 / 58; Pulse 74; Resp 16; Temp 98.4; Pulse Ox 98% ; Pain 2/10; cb5 16:35 BP 160 / 51; Pulse 70; Resp 16; Temp 98.7; Pulse Ox 98% ; Pain 0/10; cb5 19:45 BP 148 / 51 LA Supine (auto/reg); Pulse 59 MON; Resp 18 S; Temp 98.1; Pulse Ox 94% ; tk1 Pain 0/10; 20:50 BP 152 / 54 LA Supine (auto/reg); Pulse 64 MON; Resp 20; Pulse Ox 91% ; Pain 0/10; tk1 12:22 Body Mass Index 19.74 (52.16 kg, 162.56 cm) ll1 Vitals: 21:05 Cardiac Rhythm Assessment Paced. tk1 ED Course: 12:16 Patient arrived in ED. as 12:16 Rakan Murray MD is Private Physician. as 12:17 Arm band placed on Patient placed in an exam room, on a stretcher. ll1 12:24 Triage completed. ll1 12:24 Juli Joel, NATHALIE is Primary Nurse. cb5 12:28 Allergy band placed. Call light in reach. Side rails up X2. cb5 12:28 No provider procedures requiring assistance completed. cb5 12:45 Gabino Cash MD is Attending Physician. tova 13:13 Inserted saline lock: 20 gauge in right antecubital area, using aseptic technique. mb7 13:44 XRAY Chest (1 view) In Process Unspecified. EDMS 15:09 Goran Fiore DO is Hospitalizing Provider. tova 17:39 Abdomen In Process Unspecified. EDMS 19:08 Report given to Roscoe Mann cb5 19:30 IV is patent, is intact, Flushed right antecubital. tk1 Administered Medications: 15:31 Drug: Lasix (furosemide) 20 mg Route: IVP; Site: right antecubital; cb5 15:31 Drug: Zosyn (piperacillin-tazobactam) 3.375 grams Route: IVPB; Infused Over: 60 mins; cb5 Site: right antecubital; Outcome: 15:20 Decision to Hospitalize by Provider. tova 20:47 Admitted to Med/surg Report called to Attempted to call report. tk1 20:55 Admitted to Med/surg Report called to Report called to NATHALIE Jackson. tk1 21:00 Condition: stable tk1 21:23 Admitted to Med/surg accompanied by tech, room 230, with chart. tk1 21:26 Patient left the ED. mw2 Signatures: Dispatcher [employer] EDAK Gabino Cash MD MD cha Martinez, Amelia as Smirch, Shelby, RN RN Jessica Harley mw2 Scottie Oconnell RN RN 1 Hayley Velez mb7 Mackenzie Ramey tk1 Juli Joel, RN RN cb5 Corrections: (The following items were deleted from the chart) 12:24 12:22 Onset of symptoms was September 05, 2021 [place] [id number] :24 21:00 Admitted to Med/surg accompanied by tech, via stretcher, room 230, with chart, [id number]
[2021-09-08] MEDS ORDERED: PIPERACIL/TAZO 3.375 GM VIAL IV ONE (15:30)
[2021-09-08] MEDS ORDERED: NA CHLORIDE 0.9% 250 ML ONE (15:30)
[2021-09-08] MEDS ORDERED: FUROSEMIDE 20 MG/ 2ML VIAL ONE (15:31)
--- NOTE | 2021-09-08 16:50 | P.HP ---
Certification for Inpatient Patient admitted to: Observation With expected LOS: <2 Midnights Patient will require the following post-hospital care: None Practitioner: I am a practitioner with admitting privileges, knowledge of patient current condition, hospital course, and medical plan of care. Services: Services provided to patient in accordance with Admission requirements found in Title 42 Section 412.3 of the Code of Federal Regulations Patient History Date of Service: 09/08/21 Primary Care Provider: Dr. Murray; Cardiology-Dr. Almaraz Reason for admission: Abdominal swelling, constipation History of Present Illness: 86-year-old female with history of diastolic CHF, atrial fibrillation on chronic anticoagulation therapy, hypertension. Patient reports that she was seen by cardiology several weeks ago. She was taken off Norvasc at that time. She was switched to losartan hydrochlorothiazide. She reports that she had diarrhea soon thereafter. She went to her PCP who stopped losartan hydrochlorothiazide then switched her back to Norvasc. Since that time she started with some constipation. Increased abdominal pain noted with bloating. She reports some constipation at this time. She denies any nausea, vomiting or diarrhea. She denies any fever. Some chills noted. No significant shortness of breath. She came to the ER for further evaluation. In the ER patient was evaluated. White count 9.5, hemoglobin 11.4. Platelet count 276. Sodium 133, potassium 4.1. BUN of 28, creatinine 1.24 with a GFR 41. Glucose 164. Troponin negative. Lipase unremarkable. COVID test negative. Chest x-ray shows some mild pulmonary edema. CT scan abdomen and pelvis pending. Patient admitted for further evaluation and treatment. Prior CT scan April 2021 showed Retroperitoneal adenopathy/soft tissue that could reflect a lymphoproliferative disorder. Biopsy was recommended at that [facility]. No biopsy has been done. Allergies No Known Allergies Allergy (Unverified 02/26/16 17:15) Home medications list reviewed: Yes - Past Medical/Surgical History Diabetic: No -: Hypertension -: Atrial fibrillation on chronic anticoagulation therapy -: Chronic renal disease stage III -: Chronic diastolic CHF -: Hysterectomy Psychosocial/ Personal History: Patient is a - Family History Family History: Reviewed- Non-Contributory - Social History Smoking Status: Never smoker Alcohol use: No CD- Drugs: No Caffeine use: No Place of Residence: Home Review of Systems General: Weakness, As per HPI Eyes: Unremarkable ENT: Unremarkable Respiratory: Unremarkable Cardiovascular: Edema, As per HPI Gastrointestinal: Distention, Constipation, As per HPI Genitourinary: Unremarkable Musculoskeletal: Pedal edema, As per HPI Integumentary: Unremarkable Neurological: Unremarkable Lymphatics: Unremarkable Physical Examination - Studies Laboratory Data (last 24 hrs) 09/08/21 13:10: PT 22.0 H, INR 1.90 09/08/21 13:10: WBC 5.90, Hgb 11.4 L, Hct 33.9 L, Plt Count 276 09/08/21 13:10: Sodium 133 L, Potassium 4.1, BUN 21 H, Creatinine 1.24, Glucose 164 H, Magnesium 2.1 D, Total Bilirubin 0.5, AST 15, ALT 19, Alkaline Phosphatase 88, Lipase 56 L Assessment and Plan - Plan COVID: Negative Chest x-ray: COMPARISON: Chest Single View dated 07/30/2021; Chest Pa And Lat (2 Views) dated 02/25/2016 FINDINGS: Lines: Pacemaker. Lungs: No evidence of edema or pneumonia. Pleural: Blunting of both costophrenic angles Cardiac: Cardiomegaly. Bones: No acute fractures. IMPRESSION: Blunting of the costophrenic angles may represent small effusions, possibly as a result of edema/heart failure. Prior CT scan April 2021: COMPARISON: No comparisons TECHNIQUE: Biphasic CT imaging of the abdomen and pelvis was performed with 100 ml non-ionic IV contrast. All CT scans are performed using dose optimization technique as appropriate and may include automated exposure control or mA/KV adjustment according to patient size. FINDINGS: Lower chest: Moderate hiatal hernia. Cardiomegaly. Defibrillator lead. Liver: No acute abnormality or suspicious lesions. Biliary: No biliary ductal dilatation. Stomach: No significant focal abnormality. Duodenum: No significant focal abnormality. Pancreas: No significant abnormality. Spleen: No significant abnormality. Adrenal: No suspicious lesions. Kidney/ureter: No hydronephrosis. No renal calculi. Too small to characterize and/or benign appearing renal lesions are noted. Retroperitoneum: Retroperitoneal lymphadenopathy noted. For example, there is a retroperitoneal lymph node measuring 16 millimeters in the left para-aortic location. There are areas of less discrete soft tissue. Vascular: No aneurysm. Atherosclerosis. Bowel: No significant focal abnormality. Diverticulosis without diverticulitis. Peritoneum: No ascites or free air. Small fat containing ventral hernia. Bladder: Grossly unremarkable. Reproductive: No adnexal masses. Bones: No acute fracture. IMPRESSION: Retroperitoneal adenopathy/soft tissue that could reflect a lymphoproliferative disorder. Biopsy could be considered. No other acute findings identified. CT scan abdomen pelvis: Pending Physical Exam: GENERAL: The patient is a well-developed, well-nourished, in no apparent distress. Alert and oriented x3. VITAL SIGNS: Reviewed HEENT: Head is normocephalic and atraumatic. Extraocular muscles are intact. Pupils are equal, round, and reactive to light and accommodation. Nares appeared normal. Mouth is well hydrated and without lesions. Mucous membranes are moist. NECK: Supple. No carotid bruits. No lymphadenopathy or thyromegaly. LUNGS: Clear to auscultation. No crackles or wheezes are heard. HEART: Regular rate and rhythm, no appreciable gallops, rubs, murmurs or extra heart sounds ABDOMEN: Mild abdominal distention noted. Belly soft. Normal bowel sounds. Patient has umbilical hernia. No incarcerated bowel noted. EXTREMITIES: Mild 1+ pitting edema to the lower extremity NEUROLOGIC: The patient is oriented to person, place and time. Strength and sensation are grossly intact. Face is symmetric. SKIN: Normal color, turgor and temperature. No ulcerations or rashes noted. Impression: Edema, abdominal pain with constipation suspect related to acute on chronic diastolic CHF Atrial fibrillation on chronic anticoagulation therapy Hypertension Chronic renal disease stage III GERD with hiatal hernia Umbilical hernia Plan: Edema, abdominal pain with constipation suspect related to acute on chronic diastolic CHF: Patient will be admitted for further evaluation and treatment. We will provide medication for constipation including docusate and lactulose. CT scan of the abdomen to be obtained. We will continue with Aldactone 25 mg daily. We will add Lasix 20 mg 1 pill twice daily. Anticipate improvement over the next 24 hours. Likely discharge tomorrow. I will turn the service over to the hospice team tomorrow. I will go plan of care with him. Atrial fibrillation on chronic anticoagulation therapy: Continue with Xarelto 15 mg daily. Hypertension: Continue with Norvasc 10 mg daily. Patient had been started on losartan hydrochlorothiazide in the past but this caused diarrhea. Will monitor closely. Chronic renal disease stage III: Overall stable. Will monitor closely. Prior CT scan showing retroperitoneal adenopathy/soft tissue: Prior CT scan revealed possible lymphoproliferative disorder. Biopsy was recommended at that time. No biopsy has been done. Abdominal CT scan obtained to further evaluate. GERD with hiatal hernia: We will start Protonix 40 mg daily. Umbilical hernia: We will check CT scan to further evaluate. Doubt incarceration. If abnormal will consider surgery evaluation. Code Status: Patient is DNR DVT prophylaxis: Xarelto Advanced Care Planning-30 minutes: Home at discharge Discharge Plan: Home Plan to discharge in: 24 Hours - Advance Directives Does patient have a Living Will: No Does patient have a Durable POA for Healthcare: No - Code Status/Comfort Care Code Status Assessed: Yes (Patient is DNR) Time Spent Managing Pts Care (In Minutes): 55
--- NOTE | 2021-09-08 17:52 | RAD REPORT ---
EXAM DESCRIPTION: CTAbdomen Pelvis Wo Contrast - 09/08/2021 5:38 pm CLINICAL HISTORY: Abd pain;Pain COMPARISON: Abdomen Pelvis W Contrast dated 05/08/2021 TECHNIQUE: CT of the abdomen and pelvis was performed. All CT scans are performed using dose optimization technique as appropriate and may include automated exposure control or mA/KV adjustment according to patient size. FINDINGS: Lower chest: Small bilateral effusions. Interlobular septal thickening is noted. Atelectas is. Cardiomegaly. Pacemaker. Small hiatal hernia. Liver: No acute abnormality or suspicious lesions. Biliary: Nonspecific gallbladder distention. No inflammatory changes identified. Stomach: No significant focal abnormality. Duodenum: No significant focal abnormality. Pancreas: No significant abnormality. Spleen: No significant abnormality. Adrenal: No suspicious lesions. Kidney/ureter: No hydronephrosis. No renal calculi. Retroperitoneum: Similar retroperitoneal adenopathy compared with 05/08/2021. Vascular: No aneurysm. Atherosclerosis Bowel: Diverticulosis without diverticulitis. Peritoneum: No ascites or free air. Small fat containing umbilical hernia. Bladder: Grossly unremarkable. Reproductive: Hysterectomy Bones: No acute fracture. Right hip arthroplasty. Multilevel degenerative changes are present in the spine. Other: n/a IMPRESSION: 1. No new acute intra-abdominal abnormality compared with 05/08/2021. Findings remain co ncerning for lymphoproliferative disorder with retroperitoneal adenopathy. 2. Pulmonary edema noted with small bilateral effusions and associated atelectasis.
[2021-09-08] MEDS ORDERED: ACETAMINOPHEN 500 MG TAB PO PRN (21:51)
[2021-09-08] MEDS ORDERED: ONDANSETRON 4 MG/2 ML VIAL IV PRN (21:51)
[2021-09-08] MEDS: FUROSEMIDE 20 MG TABLET PO SCH (22:48)
[2021-09-08] MEDS: DOCUSATE NA 100 MG CAP PO SCH (22:48)
[2021-09-08] MEDS: RIVAROXABAN 15 MG TABLET PO SCH (22:48)
[2021-09-08 23:46] VITALS: BMI 22.3
[2021-09-09] MEDS: PANTOPRAZOLE 40MG TABLET PO SCH (06:19)
[2021-09-09 06:23] LABS: Absolute Lymphocytes (CBC) 0.7 K/uL (0.7-4.9); Hematocrit 30.4 % (36.0-45.0); Lymphocytes % 12.9 % (15.3-44.8); MPV 7.5 fL (7.6-11.3); RBC Red Blood Cell Count 3.35 M/uL (3.86-4.86)
[2021-09-09 06:45] LABS: Bilirubin Total 0.8 mg/dL (0.2-1.0); Potassium 3.9 mmol/L (3.5-5.1); Protein, Total 6.7 g/dL (6.4-8.2); Thyroid Stimulating Hormone 2.68 uIU/mL (0.360-3.740)
[2021-09-09] MEDS ORDERED: POTASSIUM CL SA 10 MEQ TAB PO ONE (09:00)
[2021-09-09] MEDS: DOCUSATE NA 100 MG CAP PO SCH ×2 (09:25→20:52)
[2021-09-09] MEDS: FOLIC ACID 1 MG TABLET PO SCH (09:25)
[2021-09-09] MEDS: AMLODIPINE 10 MG TAB PO SCH (09:25)
[2021-09-09] MEDS: THIAMINE HCL 100 MG TABLET PO SCH (09:25)
[2021-09-09] MEDS: SPIRONOLACTONE 25 MG TABLET PO SCH (09:25)
[2021-09-09] MEDS: FUROSEMIDE 20 MG TABLET PO SCH (09:26)
--- NOTE | 2021-09-09 11:05 | P.PN ---
Subjective Date of Service: 09/09/21 Primary Care Provider: Dr. Murray; Cardiology-Dr. Almaraz Chief Complaint: Abdominal swelling, constipation Subjective: No new changes (Persistent abdominal distention and leg swelling) Physical Examination - Vital Signs Temperature: 98.4 F Blood Pressure: 161/70 Pulse: 79 Respirations: 24 Pulse Ox (%): 94 - Studies Laboratory Data (last 24 hrs) 09/08/21 13:10: PT 22.0 H, INR 1.90 09/08/21 13:10: WBC 5.90, Hgb 11.4 L, Hct 33.9 L, Plt Count 276 09/08/21 13:10: Sodium 133 L, Potassium 4.1, BUN 21 H, Creatinine 1.24, Glucose 164 H, Magnesium 2.1 D, Total Bilirubin 0.5, AST 15, ALT 19, Alkaline Phosphatase 88, Lipase 56 L Assessment And Plan Physician Review Additional Text: Physical Examination - Studies Laboratory Data (last 24 hrs) 09/08/21 13:10: PT 22.0 H, INR 1.90 09/08/21 13:10: WBC 5.90, Hgb 11.4 L, Hct 33.9 L, Plt Count 276 09/08/21 13:10: Sodium 133 L, Potassium 4.1, BUN 21 H, Creatinine 1.24, Glucose 164 H, Magnesium 2.1 D, Total Bilirubin 0.5, AST 15, ALT 19, Alkaline Phosphatase 88, Lipase 56 L Assessment and Plan - Plan COVID: Negative Chest x-ray: COMPARISON: Chest Single View dated 07/30/2021; Chest Pa And Lat (2 Views) dated 02/25/2016 FINDINGS: Lines: Pacemaker. Lungs: No evidence of edema or pneumonia. Pleural: Blunting of both costophrenic angles Cardiac: Cardiomegaly. Bones: No acute fractures. IMPRESSION: Blunting of the costophrenic angles may represent small effusions, possibly as a result of edema/heart failure. that could reflect a lymphoproliferative disorder. Biopsy could be considered. No other acute findings identified. CT scan abdomen pelvis: COMPARISON: Abdomen Pelvis W Contrast dated 05/08/2021 TECHNIQUE: CT of the abdomen and pelvis was performed. All CT scans are performed using dose optimization technique as appropriate and may include automated exposure control or mA/KV adjustment according to patient size. FINDINGS: Lower chest: Small bilateral effusions. Interlobular septal thickening is noted. Atelectasis. Cardiomegaly. Pacemaker. Small hiatal hernia. Liver: No acute abnormality or suspicious lesions. Biliary: Nonspecific gallbladder distention. No inflammatory changes identified. Stomach: No significant focal abnormality. Duodenum: No significant focal abnormality. Pancreas: No significant abnormality. Spleen: No significant abnormality. Adrenal: No suspicious lesions. Kidney/ureter: No hydronephrosis. No renal calculi. Retroperitoneum: Similar retroperitoneal adenopathy compared with 05/08/2021. Vascular: No aneurysm. Atherosclerosis Bowel: Diverticulosis without diverticulitis. Peritoneum: No ascites or free air. Small fat containing umbilical hernia. Bladder: Grossly unremarkable. Reproductive: Hysterectomy Bones: No acute fracture. Right hip arthroplasty. Multilevel degenerative changes are present in the spine. Other: n/a IMPRESSION: 1. No new acute intra-abdominal abnormality compared with 05/08/2021. Findings remain concerning for lymphoproliferative disorder with retroperitoneal adenopathy. 2. Pulmonary edema noted with small bilateral effusions and associated atelectasis. Physical Exam: GENERAL: The patient is a well-developed, well-nourished, in no apparent distress. Alert and oriented x3. VITAL SIGNS: Reviewed HEENT: Head is normocephalic and atraumatic. Extraocular muscles are intact. Pupils are equal, round, and reactive to light and accommodation. Nares appeared normal. Mouth is well hydrated and without lesions. Mucous membranes are moist. NECK: Supple. No carotid bruits. No lymphadenopathy or thyromegaly. LUNGS: Clear to auscultation. No crackles or wheezes are heard. HEART: Regular rate and rhythm, no appreciable gallops, rubs, murmurs or extra heart sounds ABDOMEN: Still Mild abdominal distention noted. Belly soft. Normal bowel sounds. Patient has umbilical hernia. No incarcerated bowel noted. EXTREMITIES: still 1-2+ pitting edema to the lower extremity NEUROLOGIC: The patient is oriented to person, place and time. Strength and sensation are grossly intact. Face is symmetric. SKIN: Normal color, turgor and temperature. No ulcerations or rashes noted. Impression: Edema, abdominal pain with constipation suspect related to acute on chronic diastolic CHF Atrial fibrillation on chronic anticoagulation therapy Hypertension Chronic renal disease stage III GERD with hiatal hernia Umbilical hernia Plan: Edema, abdominal pain with constipation suspect related to acute on chronic diastolic CHF: May be due to persistent retroperitoneal lymphadenopathy may need consult oncology Continue spironolactone, will increase Lasix to 40 mg IV twice daily until volume status controlled -Will need echocardiogram to rule out diastolic CHF Atrial fibrillation on chronic anticoagulation therapy: Continue with Xarelto 15 mg daily. Hypertension: Continue with Norvasc 10 mg daily. Patient had been started on losartan hydrochlorothiazide in the past but this caused diarrhea. Will monitor closely. Chronic renal disease stage III: Overall stable. Will monitor closely. Prior CT scan showing retroperitoneal adenopathy/soft tissue: CT scan revealed possible lymphoproliferative disorder. Biopsy was recommended at that time. No biopsy has been done. Abdominal CT scan obtained to further evaluate. GERD with hiatal hernia: We will start Protonix 40 mg daily. Umbilical hernia: We will check CT scan to further evaluate. Doubt incarceration. If abnormal will consider surgery evaluation. Code Status: Patient is DNR DVT prophylaxis: Xarelto Advanced Care Planning-30 minutes: Home at discharge Discharge Plan: Home Plan to discharge in: 24 Hours
[2021-09-09] MEDS ORDERED: FUROSEMIDE 40 MG/4 ML VIAL IV SCH (12:00)
--- NOTE | 2021-09-09 15:14 | EKG ---
Test Date: 2021-09-08 Test Time: 13:10:57 Director Of Government Sales: MEASUREMENT RESULTS: Intervals: Rate: 60 MO: QRSD: 168 QT: 490 QTc: 490 [place]: P: MO: QRS: -90 T: 95 INTERPRETIVE STATEMENTS: Electronic atrial pacemaker Left axis deviation Right bundle branch block Inferior infarct, age undetermined Anterolateral infarct, age undetermined Abnormal ECG Compared to ECG 07/30/2021 04:34:09 Left-axis deviation now present Right bundle-branch block now present Right superior axis no longer present Myocardial infarct finding still present Electronically Signed On 09-09-21 15:13:55 ANALYTICS DEVELOPER by Ernesto Almaraz
[2021-09-09] MEDS: RIVAROXABAN 15 MG TABLET PO SCH (16:35)
[2021-09-10 04:55] LABS: Potassium 3.9 mmol/L (3.5-5.1)
[2021-09-10] MEDS: FUROSEMIDE 40 MG/4 ML VIAL IV SCH ×3 (06:12→16:41)
[2021-09-10] MEDS: PANTOPRAZOLE 40MG TABLET PO SCH (06:12)
[2021-09-10] MEDS: DOCUSATE NA 100 MG CAP PO SCH ×2 (08:37→20:14)
[2021-09-10] MEDS: FOLIC ACID 1 MG TABLET PO SCH (08:37)
[2021-09-10] MEDS: AMLODIPINE 10 MG TAB PO SCH (08:37)
[2021-09-10] MEDS: THIAMINE HCL 100 MG TABLET PO SCH (08:37)
[2021-09-10] MEDS: SPIRONOLACTONE 25 MG TABLET PO SCH (08:38)
[2021-09-10] MEDS ORDERED: POTASSIUM CL SA 10 MEQ TAB PO ONE (09:00)
--- NOTE | 2021-09-10 09:31 | P.PN ---
Subjective Date of Service: 09/10/21 Primary Care Provider: Dr. Murray; Cardiology-Dr. Almaraz Chief Complaint: Abdominal swelling, constipation Subjective: No new changes, No C/O voiced (Requiring 3 L nasal cannula O2) Physical Examination - Vital Signs Temperature: 98.5 F Blood Pressure: 136/64 Pulse: 66 Respirations: 19 Pulse Ox (%): 92 Assessment And Plan Physician Review: Patient Assessed, Agree with Above Assessment and Plan Physician Review Additional Text: Physical Examination - Studies Laboratory Data (last 24 hrs) 09/08/21 13:10: PT 22.0 H, INR 1.90 09/08/21 13:10: WBC 5.90, Hgb 11.4 L, Hct 33.9 L, Plt Count 276 09/08/21 13:10: Sodium 133 L, Potassium 4.1, BUN 21 H, Creatinine 1.24, Glucose 164 H, Magnesium 2.1 D, Total Bilirubin 0.5, AST 15, ALT 19, Alkaline Phosphatase 88, Lipase 56 L Assessment and Plan - Plan COVID: Negative Chest x-ray: COMPARISON: Chest Single View dated 07/30/2021; Chest Pa And Lat (2 Views) dated 02/25/2016 FINDINGS: Lines: Pacemaker. Lungs: No evidence of edema or pneumonia. Pleural: Blunting of both costophrenic angles Cardiac: Cardiomegaly. Bones: No acute fractures. IMPRESSION: Blunting of the costophrenic angles may represent small effusions, possibly as a result of edema/heart failure. that could reflect a lymphoproliferative disorder. Biopsy could be considered. No other acute findings identified. CT scan abdomen pelvis: COMPARISON: Abdomen Pelvis W Contrast dated 05/08/2021 TECHNIQUE: CT of the abdomen and pelvis was performed. All CT scans are performed using dose optimization technique as appropriate and may include automated exposure control or mA/KV adjustment according to patient size. FINDINGS: Lower chest: Small bilateral effusions. Interlobular septal thickening is noted. Atelectasis. Cardiomegaly. Pacemaker. Small hiatal hernia. Liver: No acute abnormality or suspicious lesions. Biliary: Nonspecific gallbladder distention. No inflammatory changes identified. Stomach: No significant focal abnormality. Duodenum: No significant focal abnormality. Pancreas: No significant abnormality. Spleen: No significant abnormality. Adrenal: No suspicious lesions. Kidney/ureter: No hydronephrosis. No renal calculi. Retroperitoneum: Similar retroperitoneal adenopathy compared with 05/08/2021. Vascular: No aneurysm. Atherosclerosis Bowel: Diverticulosis without diverticulitis. Peritoneum: No ascites or free air. Small fat containing umbilical hernia. Bladder: Grossly unremarkable. Reproductive: Hysterectomy Bones: No acute fracture. Right hip arthroplasty. Multilevel degenerative changes are present in the spine. Other: n/a IMPRESSION: 1. No new acute intra-abdominal abnormality compared with 05/08/2021. Findings remain concerning for lymphoproliferative disorder with retroperitoneal adenopathy. 2. Pulmonary edema noted with small bilateral effusions and associated atelectasis. Physical Exam: GENERAL: The patient is a well-developed, well-nourished, in no apparent distress. Alert and oriented x3. VITAL SIGNS: Reviewed HEENT: Head is normocephalic and atraumatic. Extraocular muscles are intact. Pupils are equal, round, and reactive to light and accommodation. Nares appeared normal. Mouth is well hydrated and without lesions. Mucous membranes are moist. NECK: Supple. No carotid bruits. No lymphadenopathy or thyromegaly. LUNGS: Clear to auscultation. No crackles or wheezes are heard. HEART: Regular rate and rhythm, no appreciable gallops, rubs, murmurs or extra heart sounds ABDOMEN: Still Mild abdominal distention noted. Belly soft. Normal bowel sounds. Patient has umbilical hernia. No incarcerated bowel noted. EXTREMITIES: Trending down to 1+ + pitting edema to the lower extremity NEUROLOGIC: The patient is oriented to person, place and time. Strength and sensation are grossly intact. Face is symmetric. SKIN: Normal color, turgor and temperature. No ulcerations or rashes noted. Impression: Edema, abdominal pain with constipation suspect related to acute on chronic diastolic CHF Atrial fibrillation on chronic anticoagulation therapy Hypertension Chronic renal disease stage III GERD with hiatal hernia Umbilical hernia Plan: Acute on chronic diastolic CHFfollow pending echocardiogram Still requiring 3 L nasal cannula O2 although not dyspneic now Continue IV diuretics Continue spironolactone and Lasix IV Follow repeat BMP in a.m. Continue to wean down O2 Abdominal pain/chronic constipationimproving, moving bowels well now may be due to persistent retroperitoneal lymphadenopathy Oncology discussed withDr. 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 Biopsy was recommended at that time. No biopsy has been done. Atrial fibrillation on chronic anticoagulation therapy: Continue with Xarelto 15 mg daily. Hypertension: Continue with Norvasc 10 mg daily. Patient had been started on losartan hydrochlorothiazide in the past but this caused diarrhea. Will monitor closely. Chronic renal disease stage III: Overall stable. Will monitor closely. GERD with hiatal hernia: c/wProtonix 40 mg daily. Umbilical hernia: We will check CT scan to further evaluate. Doubt incarceration. If abnormal will consider surgery evaluation. Code Status: Patient is DNR DVT prophylaxis: Xarelto Advanced Care Planning-30 minutes: Home at discharge Discharge Plan: Home Plan to discharge in: 24 Hours
[2021-09-10] MEDS ORDERED: FUROSEMIDE 40 MG/4 ML VIAL IV SCH (10:00)
--- NOTE | 2021-09-10 13:50 | RAD REPORT ---
EXAM DESCRIPTION: RAD - Chest Single View - 09/10/2021 1:31 pm CLINICAL HISTORY: f/u pul edema COMPARISON: Chest Single View dated 09/08/2021; Chest Single View dated 07/30/2021; Chest Pa And Lat (2 Views) dated 02/25/2016; Abdomen Pelvis Wo Contrast dated 09/08/2021 FINDINGS: Lines: None. Lungs: Interstitial edema with decreased lung volumes that may accentuate the pulmonary vasculature. Pleural: Small bilateral effusions. Cardiac: Cardiomegaly. Pacemaker. Bones: No acute fractures. Other: IMPRESSION: Interstitial edema with small effusions probably unchanged when taking into account diff erences in lung volumes.
[2021-09-10] MEDS: RIVAROXABAN 15 MG TABLET PO SCH (16:41)
[2021-09-11] MEDS: FUROSEMIDE 40 MG/4 ML VIAL IV SCH ×3 (00:38→16:15)
[2021-09-11] MEDS: PANTOPRAZOLE 40MG TABLET PO SCH (05:29)
[2021-09-11 06:14] LABS: Potassium 3.6 mmol/L (3.5-5.1)
[2021-09-11] MEDS ORDERED: PNEUMOCOCCAL VACCINE 0.5 ML IMVAC ONE (08:00)
[2021-09-11] MEDS ORDERED: INFLUENZA VACCINE (for 6+ mo) 0.5 ML DOSE IMVAC ONE (08:00)
[2021-09-11] MEDS: DOCUSATE NA 100 MG CAP PO SCH ×2 (08:12→20:21)
[2021-09-11] MEDS: FOLIC ACID 1 MG TABLET PO SCH (08:13)
[2021-09-11] MEDS: SPIRONOLACTONE 25 MG TABLET PO SCH (08:13)
[2021-09-11] MEDS: AMLODIPINE 10 MG TAB PO SCH (08:13)
[2021-09-11] MEDS: THIAMINE HCL 100 MG TABLET PO SCH (08:13)
[2021-09-11] MEDS ORDERED: POTASSIUM CL SA 10 MEQ TAB PO ONE (09:00)
--- NOTE | 2021-09-11 14:45 | ECHO ---
HEIGHT: 5 ft 4 in WEIGHT: 130 lb 0 oz DATE OF STUDY: 09/11/[address]: Harsh Zafar MD 2-DIMENSIONAL: YES M.MODE: YES DOPPLER: YES COLOR FLOW: YES TDS: NO PORTABLE: NO DEFINITY: NO BUBBLE STUDY: NO DIAGNOSIS: CVA, RULE OUT VEGETATION CARDIAC HISTORY: CATHERIZATION: NO SURGERY: NO PROSTHETIC VALVE: NO PACEMAKER: YES MEASUREMENTS (cm) DIASTOLIC (NORMALS) SYSTOLIC (NORMALS) IVSd 1.1 (0.6-1.2) LA Diam 3.7 (1.9-4.0) LVEF 65% LVIDd 4.5 (3.5-5.7) LVIDs 2.9 (2.0-3.5) %FS 35% LVPWd 1.1 (0.6-1.2) Ao Diam (2.0-3.7) 2 DIMENSIONAL ASSESSMENT: RIGHT ATRIUM: NORMAL LEFT ATRIUM: ENLARGED RIGHT VENTRICLE: NORMAL LEFT VENTRICLE: NORMAL TRICUSPID VALVE: MITRAL VALVE: PULMONIC VALVE: AORTIC VALVE: CALCIFIED PERICARDIAL EFFUSION: TRACE AORTIC ROOT: NORMAL LEFT VENTRICULAR WALL MOTION: NORMAL DOPPLER/COLOR FLOW: SEE BELOW COMMENTS: NORMAL LEFT VENTRICULAR EJECTION FRACTION 60-65%. MODERATE TO SEVERE DIASTOLIC DYSFUNCTION. 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 MODERATE TO SEVERE TRICUSPID REGURGITATION. PACEMAKER IS SEEN. LEFT ATRIAL ENLARGEMENT. MILD MITRAL, PULMONARY AND AORTIC REGURGITATION. AORTIC VALVE SCLEROSIS WITH NO STENOSIS. TECHNOLOGIST: Maverick FINN
[2021-09-11] MEDS: RIVAROXABAN 15 MG TABLET PO SCH (16:14)
--- NOTE | 2021-09-11 17:14 | P.PN ---
Date of Service: 09/11/21 Subjective Subjective: Patient continues to do well with no new complaints. Physical Examination - Vital Signs Reviewed Assessment And Plan Physician Review: Patient Assessed, Agree with Above Assessment and Plan Physician Review Additional Text: Physical Examination Physical Exam: GENERAL: The patient is a well-developed, well-nourished, in no apparent distress. Alert and oriented x3. VITAL SIGNS: Reviewed HEENT: Head is normocephalic and atraumatic. Extraocular muscles are intact. Pupils are equal, round, and reactive to light and accommodation. Nares appeared normal. Mouth is well hydrated and without lesions. Mucous membranes are moist. NECK: Supple. No carotid bruits. No lymphadenopathy or thyromegaly. LUNGS: Clear to auscultation. No crackles or wheezes are heard. HEART: Regular rate and rhythm, no appreciable gallops, rubs, murmurs or extra heart sounds ABDOMEN: Still Mild abdominal distention noted. Belly soft. Normal bowel sounds. Patient has umbilical hernia. No incarcerated bowel noted. EXTREMITIES: Trending down to 1+ + pitting edema to the lower extremity NEUROLOGIC: The patient is oriented to person, place and time. Strength and sensation are grossly intact. Face is symmetric. SKIN: Normal color, turgor and temperature. No ulcerations or rashes noted. Assessment and Plan Impression: Edema, abdominal pain with constipation suspect related to acute on chronic diastolic CHF Atrial fibrillation on chronic anticoagulation therapy Hypertension Chronic renal disease stage III GERD with hiatal hernia Umbilical hernia Plan: Acute on chronic diastolic CHFfollow pending echocardiogram Still requiring 3 L nasal cannula O2 although not dyspneic now Continue IV diuretics Continue spironolactone and Lasix IV Follow repeat BMP in a.m. Continue to wean down O2 Abdominal pain/chronic constipationimproving, moving bowels well now may be due to persistent retroperitoneal lymphadenopathy Oncology discussed withDr. 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 Biopsy was recommended at that time. No biopsy has been done. Atrial fibrillation on chronic anticoagulation therapy: Continue with Xarelto 15 mg daily. Hypertension: Continue with Norvasc 10 mg daily. Patient had been started on losartan hydrochlorothiazide in the past but this caused diarrhea. Will monitor closely. Chronic renal disease stage III: Overall stable. Will monitor closely. GERD with hiatal hernia: c/wProtonix 40 mg daily. Umbilical hernia: We will check CT scan to further evaluate. Doubt incarceration. If abnormal will consider surgery evaluation. Code Status: Patient is DNR DVT prophylaxis: Xarelto Advanced Care Planning-30 minutes: Home at discharge Discharge Plan: Home Plan to discharge in: 24 Hours
[2021-09-11] MEDS: LACTULOSE 20 GM/30 ML UCUP PO PRN (18:42)
[2021-09-12] MEDS: PANTOPRAZOLE 40MG TABLET PO SCH (05:30)
[2021-09-12] MEDS ORDERED: Magnesium Sulfate 2gm IVPB 2 G/50 ML BAG IV ONE (09:00)
[2021-09-12] MEDS ORDERED: POTASSIUM CL SA 10 MEQ TAB PO ONE (09:00)
[2021-09-12] MEDS: FUROSEMIDE 40 MG/4 ML VIAL IV SCH (09:24)
[2021-09-12] MEDS: DOCUSATE NA 100 MG CAP PO SCH ×2 (09:25→20:13)
[2021-09-12] MEDS: SPIRONOLACTONE 25 MG TABLET PO SCH (09:25)
[2021-09-12] MEDS: THIAMINE HCL 100 MG TABLET PO SCH (09:25)
[2021-09-12] MEDS: FOLIC ACID 1 MG TABLET PO SCH (09:25)
[2021-09-12] MEDS: AMLODIPINE 10 MG TAB PO SCH (09:26)
[2021-09-12 11:17] LABS: Absolute Lymphocytes (CBC) 0.7 K/uL (0.7-4.9); Hematocrit 29.3 % (36.0-45.0); Lymphocytes % 11.4 % (15.3-44.8); MPV 7.5 fL (7.6-11.3); RBC Red Blood Cell Count 3.24 M/uL (3.86-4.86)
[2021-09-12 11:32] LABS: Bilirubin Total 0.7 mg/dL (0.2-1.0); Potassium 3.3 mmol/L (3.5-5.1)
[2021-09-12] MEDS: RIVAROXABAN 15 MG TABLET PO SCH (16:47)
[2021-09-13] MEDS ORDERED: MELATONIN 5 MG TABLET PO PRN
[2021-09-13 00:07] VITALS: O2SAT 99
[2021-09-13] MEDS: PANTOPRAZOLE 40MG TABLET PO SCH (05:54)
[2021-09-13] MEDS ORDERED: POTASSIUM CL SA 10 MEQ TAB PO ONE (09:00)
[2021-09-13] MEDS: FUROSEMIDE 40 MG/4 ML VIAL IV SCH (10:25)
[2021-09-13] MEDS: DOCUSATE NA 100 MG CAP PO SCH (10:25)
[2021-09-13] MEDS: SPIRONOLACTONE 25 MG TABLET PO SCH (10:26)
[2021-09-13] MEDS: THIAMINE HCL 100 MG TABLET PO SCH (10:26)
[2021-09-13] MEDS: FOLIC ACID 1 MG TABLET PO SCH (10:26)
[2021-09-13] MEDS: AMLODIPINE 10 MG TAB PO SCH (10:26)
[2021-09-13] MEDS: LACTULOSE 20 GM/30 ML UCUP PO PRN (10:27)
[2021-09-13 12:19] VITALS: BP 153/70; TEMP 97.7
== END 2021-09-13 13:37 | disposition home health service (06) | DRG 291 ==
LOC: ER 12:14 → ERHOLD 16:40 → 2ND 21:17 → OBSVTOIN 09-10 14:32
PROVIDERS: ADMIT Family Medicine; ATTEND Hospitalist
DX: I13.0 Hypertensive heart and chronic kidney disease with heart failure and stage 1 through stage 4 chronic kidney disease, or unspecified chronic kidney disease (principal); I50.33 Acute on chronic diastolic (congestive) heart failure; N18.30 Chronic kidney disease, stage 3 unspecified; I49.1 Atrial premature depolarization; K42.9 Umbilical hernia without obstruction or gangrene; K21.9 Gastro-esophageal reflux disease without esophagitis; K59.09 Other constipation; R59.9 Enlarged lymph nodes, unspecified; Z79.899 Other long term (current) drug therapy; Z79.01 Long term (current) use of anticoagulants; Z66 Do not resuscitate; Z20.822 Contact with and (suspected) exposure to COVID-19
CPT/HCPCS: 0241U; 36415; 71045; 74176; 80048; 80053; 80061; 80076; 83690; 83735; 83880; 84439; 84443; 84484; 85025; 85610; 93005; 93306; 96374; 96375; 99285; G0378; J1940; J2405; J2543; J7050